=== PATIENT | female | born 1940 | race Caucasian/White ===

== ENCOUNTER 2017-07-12 20:05 | Emergency (ER) | payer MEDICARE, OTHER ==
[~2017-07-12] VITALS: Ht 162.6 cm; Wt 115.2 kg
== END 2017-07-12 21:00 | disposition home or self-care (01) ==
LOC: ER 20:05
DX: L03.313 Cellulitis of chest wall (principal); L02.213 Cutaneous abscess of chest wall; Z95.1 Presence of aortocoronary bypass graft
CPT/HCPCS: 99282

== ENCOUNTER 2018-03-21 20:03 | Inpatient (IN) | payer MEDICARE ==
[~2018-03-21] VITALS: Ht 162.6 cm; Wt 125.7 kg
--- OUTSIDE RECORDS SUMMARY | 2018-03-21 20:06 | XMS REPORT | Clinical Summary ---
Author Author FILIBERTO C3DNA Organization [facility] [employer] [facility] Address Unknown Phone Unavailable Care Team Providers Care Adoption Social Worker Name Role Phone tOf Levine MD PCP Allergies No Known Allergies Medications End Date Status Medication Sig Dispensed Refills Start Date Active aspirin 81 MG chewable Take 81 mg by 0 tablet mouth daily. Active atorvastatin (LIPITOR) 80 Take 80 mg by 0 MG tablet mouth daily. Active budesonide-formoterol Inhale 2 0 (SYMBICORT) 160-4.5 puffs by mcg/actuation inhaler mouth via inhaler 2 (two) times daily. Active gabapentin (NEURONTIN) Take 300 mg 0 300 MG capsule by mouth 3 (three) times daily . Active ranitidine (ZANTAC) 150 Take 150 mg 0 MG capsule by mouth 2 (two) times daily. Active bisoprolol (ZEBETA) 5 MG Take 5 mg by 0 tablet mouth 2 (two) times daily. Active lactulose (CHRONULAC) 10 Take 20 g by 0 gram/15 mL (15 mL) mouth 2 (two) solution times daily. Active cholecalciferol, vitamin Take 1 tablet 0 D3, 5,000 unit Tab by mouth daily. Active cyanocobalamin (VITAMIN Take 1 tablet 0 B-12) 1000 MCG tablet by mouth daily. Active C,E,zinc,copper Take 1 tablet 0 11/mqmlt1o/lut (OCUVITE by mouth ADULT 50 PLUS ORAL) daily. Active latanoprost (XALATAN) Place 1 drop 0 11/02/201 0.005 % ophthalmic into both 8 solution eyes daily. Active loratadine (CLARITIN) 10 Take 1 tablet 0 12/11/201 mg tablet by mouth 6 daily as needed for Allergies. Active nitroglycerin (NITROSTAT) Take 1 tablet 0 0.4 MG SL tablet by mouth as 8 needed for Chest pain Dissolve one to two tablets under the tongue as needed up to 3 times. If not relieved, please call 911. 02/18/2018 Discontinued acetaminophen-codeine Take 1 tablet 0 (TYLENOL #3) 300-30 mg by mouth per tablet every 4 (four) hours as needed for Pain. 02/18/2018 Discontinued clopidogrel (PLAVIX) 75 Take 75 mg by 0 mg tablet mouth daily. 02/18/2018 Discontinued losartan-hydroCHLOROthiaz Take 1 tablet 0 dari (HYZAAR) 50-12.5 mg by mouth per tablet daily. 02/18/2018 Discontinued spironolactone Take 25 mg by 0 (ALDACTONE) 25 MG tablet mouth daily. 02/18/2018 Discontinued ondansetron (ZOFRAN ODT) Take 4 mg by 0 4 MG disintegrating mouth every 8 8 tablet (eight) hours as needed for Nausea. 02/21/2018 levoFLOXacin (LEVAQUIN) Take 1 tablet 2 tablet 0 250 MG tablet (250 mg 8 total) by mouth daily for 2 days. Active Problems Problem Noted Date Hepatic encephalopathy 02/17/2018 Visual hallucinations 02/17/2018 Acute UTI 02/17/2018 Acute vomiting 02/17/2018 Cirrhosis 02/17/2018 Encounters Care Team Description Date Type Specialty Dann Ramos MD Liver lesion; Abnormal ultrasound 03/08/2018 Hospital Radiology Encounter Dann Ramos MD Liver lesion (Primary Dx); Abnormal ultrasound 03/01/2018 Outside Orders Radiology 02/17/2018 Travel Na Apodaca MD Udayamurthy, Anita, MD Acute vomiting (Primary Dx); Cirrhosis of liver without ascites, unspecified hepatic cirrhosis type (HCC); Hepatic encephalopathy (HCC); Visual hallucinations; Intractable cyclical vomiting with nausea; Tongue wound, initial encounter; Serotonin syndrome; Acute urinary tract infection; Acute UTI 02/16/2018 Hospital General Internal Medicine - Encounter 02/18/2018 02/16/2018 Orders Only General Internal Medicine 02/16/2018 Travel after 03/20/2017 Family History Medical History Relation Name Comments Aneurysm Father Cancer Mother Relation Name Status Comments Father Mother Social History Date Tobacco Use Types Packs/Day Years Used Never Smoker Smokeless Tobacco: Never Used Alcohol Use Drinks/Week oz/Week Comments No Alcohol Habits Answer Date Recorded How often do you have a drink containing alcohol? Never 02/17/2018 How many drinks containing alcohol do you have on Not asked a typical day when you are drinking? How often do you have six or more drinks on one Not asked occasion? Sex Assigned at Date Recorded Not on file Industry Job Start Date Occupation Not on file Not on file Not on file Travel End Travel History Travel Start No recent travel history available. Last Filed Vital Signs Time Taken Vital Sign Reading 02/18/2018 10:41 AM [employer] Blood Pressure 134/59 02/18/2018 10:41 AM [employer] Pulse 77 02/18/2018 10:41 AM [employer] Temperature 36.6 C (97.8 F) 02/18/2018 10:41 AM [employer] Respiratory Rate 18 02/18/2018 10:41 AM [employer] Oxygen Saturation 94% 02/17/2018 10:11 PM [employer] Inhaled Oxygen 21% Concentration 02/16/2018 11:14 PM [employer] Weight 113.4 kg (250 lb) 02/16/2018 11:14 PM [employer] Height 162.6 cm (5' 4") 02/16/2018 11:14 PM [employer] Body Mass Index 42.91 Plan of Treatment Not on file Procedures Comments Procedure Name Priority Date/Time Associated Diagnosis MR ABDOMEN WITH/WITHOUT Routine 03/08/2018 Liver lesion IV CONTRAST 3:20 PM [employer] Abnormal ultrasound POCT-CREATININE Routine 03/08/2018 2:29 PM [employer] AMMONIA Routine 02/18/2018 5:13 AM [employer] HEPATIC FUNCTION PANEL Routine 02/18/2018 5:13 AM [employer] BASIC METABOLIC PANEL (7) Routine 02/18/2018 5:13 AM [employer] CBC W/PLT COUNT & AUTO Routine 02/18/2018 DIFFERENTIAL 5:12 AM [employer] CBC W/PLT COUNT & AUTO Routine 02/18/2018 DIFFERENTIAL 5:12 AM [employer] POCT-LACTIC ACID, VENOUS Routine 02/17/2018 7:16 AM [employer] CBC W/PLT COUNT & AUTO Routine 02/17/2018 DIFFERENTIAL 5:21 AM [employer] CBC W/PLT COUNT & AUTO Routine 02/17/2018 DIFFERENTIAL 5:21 AM [employer] HEPATIC FUNCTION PANEL Routine 02/17/2018 5:21 AM [employer] BASIC METABOLIC PANEL (7) Routine 02/17/2018 5:21 AM [employer] US ABDOMEN COMPLETE STAT 02/17/2018 4:10 AM [employer] XR CHEST 1 VIEW STAT 02/17/2018 PORTABLE/BEDSIDE 3:27 AM [employer] CT BRAIN WITHOUT IV STAT 02/17/2018 CONTRAST 2:32 AM [employer] APTT STAT 02/17/2018 12:42 AM [employer] PROTHROMBIN TIME/INR STAT 02/17/2018 12:42 AM [employer] AMMONIA STAT 02/17/2018 12:35 AM [employer] CBC W/PLT COUNT & AUTO STAT 02/17/2018 DIFFERENTIAL 12:06 AM [employer] BLOOD GAS, VENOUS STAT 02/17/2018 12:06 AM [employer] LACTIC ACID, VENOUS, STAT 02/17/2018 WHOLE BLOOD 12:06 AM [employer] PHOSPHORUS STAT 02/17/2018 12:06 AM [employer] MAGNESIUM STAT 02/17/2018 12:06 AM [employer] HEPATIC FUNCTION PANEL STAT 02/17/2018 12:06 AM [employer] BASIC METABOLIC PANEL (7) STAT 02/17/2018 12:06 AM [employer] CBC W/PLT COUNT & AUTO STAT 02/17/2018 DIFFERENTIAL 12:06 AM [employer] URINALYSIS W/ REFLEX STAT 02/17/2018 URINE CULTURE 12:01 AM [employer] URINE CULTURE STAT 02/17/2018 12:01 AM [employer] ED ECG INTERPRETATION Routine 02/16/2018 11:30 PM [employer] ECG 12-LEAD Routine 02/16/2018 11:21 PM [employer] Procedure Note - Interface, External Ris In - 02/16/2018 11:35 PM [employer] Ventricula r Rate 52 BPM Atrial Rate 52 BPM P-R Interval 212 ms QRS Duration 90 ms Q-T Interval 506 ms QTC Calculatio n(Bazett) 470 ms P Entriken 72 degrees R Entriken 56 degrees T Entriken 1 degrees Sinus bradycardi a with 1st degree A-V block Nonspecifi c ST and T wave abnormalit y Prolonged QT Abnormal ECG No previous ECGs available ECG 12-LEAD STAT 02/16/2018 11:21 PM [employer] after 03/20/2017 Results * MR abdomen without & with IV contrast (03/08/2018 3:20 PM [employer]) Narrative Performed At FINAL REPORT [facility] MRI of the abdomen dated March 08, 2018 Comment: Multiplanar T1 and T2-weighted images of the abdomen, postcontrast axial and coronal T1-weighted images of the abdomen were obtained. Liver is cirrhotic liver is cirrhotic in appearance with irregular margins. No suspicious mass or abnormal enhancement is seen in the liver. A 1 cm cyst is seen in the segment to 3 of the liver. Spleen is normal in size. The splenic, spleen mesenteric, portal, and hepatic veins are patent. Main portal vein measures approximately 9 mm in diameter. No portal vein thrombosis is seen. Gallbladder is not visualized. There is mild biliary dilatation. Common bile duct measures 9 mm in diameter. Pancreas and adrenals are unremarkable. Both kidneys are normal in size and functioning. A 2.2 cm cyst is seen in the midpole right kidney. There is trace amount of ascites is seen in the abdomen. IMPRESSION: 1. Cirrhosis. 2. No suspicious hepatic mass. 3. Liver and right renal cysts. 4. Trace ascites. Signed: Tayo Bentley MD Report Verified Date/Time:03/08/2018 18:05:21 Reading Location: [facility] B1 C013Y CT Body Reading Room Procedure Note Interface, External Ris In - 03/08/2018 6:07 PM [employer] FINAL REPORT MRI of the abdomen dated March 08, 2018 Comment: Multiplanar T1 and T2-weighted images of the abdomen, postcontrast axial and coronal T1-weighted images of the abdomen were obtained. Liver is cirrhotic liver is cirrhotic in appearance with irregular margins. No suspicious mass or abnormal enhancement is seen in the liver. A 1 cm cyst is seen in the segment to 3 of the liver. Spleen is normal in size. The splenic, spleen mesenteric, portal, and hepatic veins are patent. Main portal vein measures approximately 9 mm in diameter. No portal vein thrombosis is seen. Gallbladder is not visualized. There is mild biliary dilatation. Common bile duct measures 9 mm in diameter. Pancreas and adrenals are unremarkable. Both kidneys are normal in size and functioning. A 2.2 cm cyst is seen in the midpole right kidney. There is trace amount of ascites is seen in the abdomen. IMPRESSION: 1. Cirrhosis. 2. No suspicious hepatic mass. 3. Liver and right renal cysts. 4. Trace ascites. Signed: Tayo Bentley MD Report Verified Date/Time: 03/08/2018 18:05:21 Reading Location: [facility] C013Y CT Body Reading Room Performing Organization Address City/[facility]/Zipcode Phone Number GE RIS * POC-Creatinine (03/08/2018 2:29 PM [employer]) POC-Creatinine 0.9Comment: TESTED AT [facility]-KG 0.6 - 1.3 mg/dL [address] [place] [address] POC-EGFR 61 mL/min/1.73M2 [facility] Specimen Blood Narrative Performed At Performing Organization Address City/State/Zipcode Phone Number [address] [address] [facility] * Ammonia (02/18/2018 5:13 AM [employer]) Only the most recent of 2 results within the time period is included. Ammonia 64 18 - 72 mol/L [facility] Specimen Blood Performing Organization Address City/[facility]/Zipcode Phone Number [facility] [address] [place] [address] [facility] * Hepatic function panel (02/18/2018 5:13 AM [employer]) Only the most recent of 3 results within the time period is included. Protein, Total 6.2 6.0 - 8.3 gm/dL [facility] Albumin 2.8 (L) 3.5 - 5.0 g/dL [facility] Total Bilirubin 3.3 (H) 0.2 - 1.2 mg/dL [facility] Bilirubin, Direct 1.0 (H) 0.1 - 0.5 mg/dL [facility] Alkaline Phosphatase 139 40 - 150 U/L [facility] AST 84 (H) 5 - 34 U/L [facility] ALT 50 6 - 55 U/L [facility] Specimen Blood Narrative Performed At Specimen moderately icteric [facility] Performing Organization Address City/State/Zipcode Phone Number [facility] [address] [place] [address] [facility] * Basic metabolic panel (02/18/2018 5:13 AM [employer]) Only the most recent of 3 results within the time period is included. Sodium 137 136 - 145 meq/L [facility] Potassium 3.8 3.5 - 5.1 meq/L [facility] Chloride 108 (H) 98 - 107 meq/L [facility] CO2 20 (L) 22 - 29 meq/L [facility] BUN 20 7 - 21 mg/dL [facility] Creatinine 1.31 (H) 0.57 - 1.25 mg/dL [facility] Glucose 101 70 - 105 mg/dL [facility] Calcium 8.5 8.4 - 10.2 mg/dL [facility] EGFR 39Comment: ESTIMATED GFR IS mL/min/1.[address] [facility] NOT ACCURATE CREATININE [facility] CLEARANCE IN PREDICTING GLOMERULAR FILTRATION RATE. ESTIMATED GFR IS NOT APPLICABLE FOR DIALYSIS PATIENTS. Specimen Blood Narrative Performed At Specimen moderately icteric [facility] Performing Organization Address City/State/Zipcode Phone Number [facility] [address] [place] [address] [facility] * CBC with platelet count + automated diff (02/18/2018 5:12 AM [employer]) Only the most recent of 3 results within the time period is included. WBC 5.9 3.5 - 10.5 K/L [facility] RBC 3.62 (L) 3.93 - 5.22 M/L [facility] Hemoglobin 11.7 11.2 - 15.7 GM/DL [facility] Hematocrit 35.7 34.1 - 44.9 % [facility] MCV 98.6 (H) 79.4 - 94.8 fL [facility] MCH 32.3 (H) 25.6 - 32.2 pg [facility] MCHC 32.8 32.2 - 35.5 GM/DL [facility] RDW 15.2 (H) 11.7 - 14.4 % [facility] Platelets 87 (L) 150 - 450 K/CU MM [facility] MPV 11.4 9.4 - 12.3 fL [facility] nRBC 0 0 - 0 /100 WBC [facility] % Neutros 63 % [facility] % Lymphs 19 % [facility] % Monos 16 % [facility] % Eos 2 % [facility] % Baso 1 % [facility] # Neutros 3.69 1.56 - 6.13 K/L [facility] # Lymphs 1.09 (L) 1.18 - 3.74 K/L [facility] # Monos 0.96 (H) 0.24 - 0.36 K/L [facility] # Eos 0.09 0.04 - 0.36 K/L [facility] # Baso 0.04 0.01 - 0.08 K/L [facility] Immature 0 0 - 1 % [facility] Granulocytes-[facility] Specimen Blood Performing Organization Address City/[facility] Cent[facility]ode Phone Number [address] [address] [facility] * POC-Lactic Acid, Venous (02/17/2018 7:16 AM [employer]) POC-Lactic Acid, Venous 2.8 (H)Comment: TESTED AT 0.9 - 1.7 mmol/L [address] [address] Specimen Blood Performing Organization Address City/[facility] Phone Number [place] [phone] [place] [address] * US abdomen complete (02/17/2018 4:10 AM [employer]) Narrative Performed At FINAL REPORT [facility] Ultrasound of the Abdomen, complete Clinical History:Emesis and hepatic encephalopathy. Discussion: Sonographic evaluation of the abdomen was performed. There is no prior study for comparison. Liver: 16.4 cm in length at the right midclavicular line.Coarse echotexture with nodular contour keeping with cirrhosis.1.0 x 0.9 x 0.8 cm simple cyst in the left hepatic lobe.Main portal vein is patent measuring 1.0 cm in diameter and demonstrates hepatopetal flow. Biliary tree:Common duct 10 mm.No intrahepatic biliary ductal dilatation. Gallbladder: Status post cholecystectomy. Pancreas: Partially obscured by bowel gas but the visualized portions are unremarkable. Ascites:None seen Spleen:Normal size measuring 12 x 5 x 4.9 cm. Kidneys: Right kidney 10.7 x 4.5 x 4.6 cm with cortical thickness of 1.2 cm.Left kidney 11.5 x 5.8 x 5.2 cm with cortical thickness of 1.6 cm.Normal cortical echogenicity. 2.3 x 1.8 x 2.3 cm simple right lower pole cyst. No shadowing calculus or hydronephrosis. IVC/Aorta:Segments partially seen.Unremarkable. Impression: Status post cholecystectomy. No biliary ductal dilatation. Cirrhotic morphology of the liver. Small left hepatic cyst. Patent main portal vein. Signed: Karis Ross MD Report Verified Date/Time:02/17/2018 04:55:29 Reading Location: [address] Body Reading Room Procedure Note Interface, External Ris In - 02/17/2018 4:57 AM [employer] FINAL REPORT Ultrasound of the Abdomen, complete Clinical History: Emesis and hepatic encephalopathy. Discussion: Sonographic evaluation of the abdomen was performed. There is no prior study for comparison. Liver: 16.4 cm in length at the right midclavicular line. Coarse echotexture with nodular contour keeping with cirrhosis. 1.0 x 0.9 x 0.8 cm simple cyst in the left hepatic lobe. Main portal vein is patent measuring 1.0 cm in diameter and demonstrates hepatopetal flow. Biliary tree: Common duct 10 mm. No intrahepatic biliary ductal dilatation. Gallbladder: Status post cholecystectomy. Pancreas: Partially obscured by bowel gas but the visualized portions are unremarkable. Ascites: None seen Spleen: Normal size measuring 12 x 5 x 4.9 cm. Kidneys: Right kidney 10.7 x 4.5 x 4.6 cm with cortical thickness of 1.2 cm. Left kidney 11.5 x 5.8 x 5.2 cm with cortical thickness of 1.6 cm. Normal cortical echogenicity. 2.3 x 1.8 x 2.3 cm simple right lower pole cyst. No shadowing calculus or hydronephrosis. IVC/Aorta: Segments partially seen. Unremarkable. Impression: Status post cholecystectomy. No biliary ductal dilatation. Cirrhotic morphology of the liver. Small left hepatic cyst. Patent main portal vein. Signed: Karis Ross MD Report Verified Date/Time: 02/17/2018 04:55:29 Reading Location: [facility] C013Y CT Body Reading Room Performing Organization Address [facility] Phone Number GE [facility] * XR chest 1 view portable / bedside (02/17/2018 3:27 AM [employer]) Narrative Performed At FINAL REPORT [facility] Chest one view. Clinical history: Emesis and hepatic encephalopathy. Comparison: None. Technique: A single frontal view of the chest was obtained. Findings: The patient is status post median sternotomy. The heart is normal in size. The aorta is tortuous. There is no focal pulmonary consolidation, pleural effusion or pneumothorax. There is no pulmonary edema. There is lower cervical spine fusion hardware. Impression: No focal pulmonary consolidation. Signed: Karis Ross MD Report Verified Date/Time:02/17/2018 03:28:02 Reading Location: [facility] C013Y CT Body Reading Room Procedure Note Interface, External Ris In - 02/17/2018 3:30 AM [employer] FINAL REPORT Chest one view. Clinical history: Emesis and hepatic encephalopathy. Comparison: None. Technique: A single frontal view of the chest was obtained. Findings: The patient is status post median sternotomy. The heart is normal in size. The aorta is tortuous. There is no focal pulmonary consolidation, pleural effusion or pneumothorax. There is no pulmonary edema. There is lower cervical spine fusion hardware. Impression: No focal pulmonary consolidation. Signed: Karis Ross MD Report Verified Date/Time: 02/17/2018 03:28:02 Reading Location: [facility] C013Y CT Body Reading Room Performing Organization Address [facility] Cent[facility]ode Phone Number [facility] * CT brain without IV contrast (02/17/2018 2:32 AM [employer]) Narrative Performed At FINAL REPORT [facility] CLINICAL HISTORY: Confusion, loss of consciousness, emesis, possible seizure COMPARISON: None Multiple axial images of the brain were performed without IV contrast. This exam was performed according to our departmental dose-optimization program, which includes automated exposure control, adjustment of the mA and/or kV according to patient size and/or use of the iterative reconstruction technique. Intracranial hemorrhage: None. Brain parenchyma:Diffuse parenchymal volume loss. Scattered subcortical and periventricular non-specific white matter hypodensities suggestive of microangiopathy. Ventricles, sulci and basal cisterns: Normal for age. Extra-axial spaces: Normal. Midline shift: None. Visualized vasculature: Atherosclerotic calcifications. Cranium: No significant findings. Skullbase: No significant findings. Paranasal sinuses: No significant findings. IMPRESSION: No definite acute intracranial abnormality. There is no mass lesion, intracranial hemorrhage or CT evidence of acute stroke. Microvascular and involutional changes. Please note that CT is insensitive in the detection of acute ischemia. Signed: Aneudy Chin MD Report Verified Date/Time:02/17/2018 02:34:19 Reading Location: [address] Reading Room Procedure Note Interface, External Ris In - 02/17/2018 2:36 AM [employer] FINAL REPORT CLINICAL HISTORY: Confusion, loss of consciousness, emesis, possible seizure COMPARISON: None Multiple axial images of the brain were performed without IV contrast. This exam was performed according to our departmental dose-optimization program, which includes automated exposure control, adjustment of the mA and/or kV according to patient size and/or use of the iterative reconstruction technique. Intracranial hemorrhage: None. Brain parenchyma: Diffuse parenchymal volume loss. Scattered subcortical and periventricular non-specific white matter hypodensities suggestive of microangiopathy. Ventricles, sulci and basal cisterns: Normal for age. Extra-axial spaces: Normal. Midline shift: None. Visualized vasculature: Atherosclerotic calcifications. Cranium: No significant findings. Skullbase: No significant findings. Paranasal sinuses: No significant findings. IMPRESSION: No definite acute intracranial abnormality. There is no mass lesion, intracranial hemorrhage or CT evidence of acute stroke. Microvascular and involutional changes. Please note that CT is insensitive in the detection of acute ischemia. Signed: Aneudy Chin MD Report Verified Date/Time: 02/17/2018 02:34:19 Reading Location: [address] Reading Room Performing Organization Address City/State/Zipcode Phone Number GE [facility] * PTT (aPTT) (02/17/2018 12:42 AM [employer]) PTT 38.9 (H) 22.5 - 36.0 seconds [facility] Specimen Blood Performing Organization Address City/[facility] Cent[facility]ode Phone Number [facility] [address] [place] [phone] * PT/INR (02/17/2018 12:42 AM [employer]) Protime 17.0 (H) 11.7 - 14.7 seconds [facility] INR 1.4 <=5.9 [facility] Specimen Blood Narrative Performed At RECOMMENDED COUMADIN/WARFARIN INR THERAPY RANGES [facility] STANDARD DOSE: 2.0 - 3.0 Includes: PROPHYLAXIS for venous thrombosis, [facility] systemic embolization; TREATMENT for venous thrombosis and/or pulmonary embolus. HIGH RISK: Target INR is 2.5-3.5 for patients with mechanical heart valves. Performing Organization Address [facility]conc Phone Number [address] * Lactic acid, venous, whole blood (02/17/2018 12:06 AM [employer]) Lactate, Venous 2.7 (H)Comment: Specimen 0.5 - 2.2 mmol/L [facility] slightly hemolyzed [facility] Specimen Blood Narrative Performed At Specimen slightly icteric [facility] Performing Organization Address [facility] Centercode Phone Number [facility] [address] [place] [address] [phone] [place] [address] * Phosphorus (02/17/2018 12:06 AM [facility] [employer]) Phosphorus 2.4 2.3 - 4.7 mg/dL [facility] Specimen Blood Performing Organization Address City/[facility]/Zipcode Phone Number [facility] [address] [place] [address] [phone] [facility] * Magnesium (02/17/2018 12:06 AM [employer]) Magnesium 2.3 1.6 - 2.6 mg/dL [facility] Specimen Blood Performing Organization Address City/State/Zipcode Phone Number [address] [address] [facility] * Blood gas, venous (02/17/2018 12:06 AM [facility]) pH, Miguel 7.40 7.32 - 7.42 [facility] pCO2, Miguel 44 41 - 51 mmHg [facility] pO2, Miguel 94 (H) 25 - 40 mmHg [facility] O2 Sat, Miguel 97.2 (H) 40.0 - 70.0 % [facility] HCO3, Miguel 27 21 - 29 mmol/L [facility] Base Excess, Miguel 1.6 -2.0 - 3.0 mmol/L [facility] Patient Temperature 37.0 C [facility] FIO2 21.0 % [facility] Specimen Blood Performing Organization Address City/State/Zipcode Phone Number [address] [address] [facility] * Urinalysis w/Microscopic + Reflex to Culture (02/17/2018 12:01 AM [facility]) Color, UA Yellow [facility] Clarity, UA Hazy [facility] Specific Baltic, UA 1.015 1.001 - 1.035 [facility] pH, UA 6.5 5.0 - 8.0 [facility] Protein, UA 70 mg/dL (A) Negative [facility] Glucose, UA Negative Negative [facility] Ketones, UA Negative Negative [facility] Bilirubin, UA Negative Negative [facility] Blood, UA Moderate (A) Negative [facility] Nitrite, UA Negative Negative [facility] Leukocytes, UA Large (A) Negative [facility] Urobilinogen, UA 12.0 (H) 0.2 - 1.0 mg/dL [facility] RBC, UA 7 /HPF [facility] WBC, UA 149 /HPF [facility] Bacteria, UA Many [facility] Squam Epithel, UA 8 /HPF [facility] Hyaline Casts, UA 10 /LPF [facility] Granular Casts, UA 20 /LPF [facility] Specimen Source [facility] Specimen Urine - Urine, Clean Catch Performing Organization Address City/State/Zipcode Phone Number [facility] [address] [place] [address] [facility]ENTER * Urine culture (02/17/2018 12:01 AM [employer]) Result RAOULTELLA ORNITHINOLYTICA (A) [facility] Result ENTEROBACTER CLOACAE COMPLEX [facility] () [facility] Specimen Urine - Urine, Clean Catch Antibiotic Method Susceptibility Organism Amikacin <=2: Susceptible Raoultella ornithinolytica Ampicillin + Sulbactam 8: Susceptible Raoultella ornithinolytica Aztreonam <=1: Susceptible Raoultella ornithinolytica Cefepime <=1: Susceptible Raoultella ornithinolytica Cefoxitin <=4: Susceptible Raoultella ornithinolytica Ceftazidime <=1: Susceptible Raoultella ornithinolytica Ceftriaxone <=1: Susceptible Raoultella ornithinolytica Ertapenem <=0.5: Susceptible Raoultella ornithinolytica Gentamicin <=1: Susceptible Raoultella ornithinolytica Levofloxacin <=0.12: Susceptible Raoultella ornithinolytica Meropenem <=0.25: Susceptible Raoultella ornithinolytica Nitrofurantoin <=16: Susceptible Raoultella ornithinolytica Piperacillin + Tazobactam <=4: Susceptible Raoultella ornithinolytica Tetracycline <=1: Susceptible Raoultella ornithinolytica Tobramycin <=1: Susceptible Raoultella ornithinolytica Trimethoprim + Sulfamethoxazole <=20: Susceptible Raoultella ornithinolytica Amikacin <=8: Susceptible Enterobacter cloacae complex Ampicillin >16: Resistant Enterobacter cloacae complex Ampicillin + Sulbactam 16: Resistant Enterobacter cloacae complex Aztreonam <=1: Susceptible Enterobacter cloacae complex Cefepime <=4: Dose Dependent Susceptible Enterobacter cloacae complex Ceftazidime <=1: Susceptible Enterobacter cloacae complex Ciprofloxacin <=0.5: Susceptible Enterobacter cloacae complex Gentamicin <=2: Susceptible Enterobacter cloacae complex Levofloxacin <=1: Susceptible Enterobacter cloacae complex Meropenem <=0.5: Susceptible Enterobacter cloacae complex Nitrofurantoin >8: Susceptible Enterobacter cloacae complex Piperacillin + Tazobactam <=8: Susceptible Enterobacter cloacae complex Tetracycline >8: Resistant Enterobacter cloacae complex Tobramycin <=2: Susceptible Enterobacter cloacae complex Trimethoprim + Sulfamethoxazole >80: Resistant Enterobacter cloacae complex Comment: Higher doses of Cefepime such as 1g every 8 hours are recommended with an interpretation of Dose Dependent Susceptible Performing Organization Address City/State/Zipcode Phone Number [facility] [address] [place] [address] [facility] * ECG/EKG Interpretation (02/16/2018 11:30 PM [employer]) Narrative Performed At Na Apodaca MD 02/19/20188:51 AM ECG/EKG Interpretation Date/Time: 02/16/2018 11:21 PM Performed by: Na Apodaca MD Authorized by: Na Apodaca MD The ECG was interpreted by ED physician. This ECG was not compared with previous ECG(s).There was no previous ECG available for comparison. The ECG is interpreted as sinus bradycardia. Rate is bradycardic. Heart rate is 52 BPM. Abnormal conduction noted: pr 0.[address] segments normal. T waves abnormal. T-wave inversion in lead(s) III and V3. T-wave flattening in lead(s) V4, V5 and V6. Entriken is normal. Other findings include: QTc 0.470and prolonged QTc interval. Clinical Impression: abnormal ECGECG reviewed and does not meet STEMI criteria. Patient tolerance: Patient tolerated the procedure well with no immediate complications * ECG 12 lead (02/16/2018 11:21 PM [employer]) Narrative Performed At Ventricular Rate 52 BPM GE MUSE Atrial Rate 52 BPM P-R Interval 212 ms QRS Duration 90 ms Q-T Interval 506 ms QTC Calculation(Bazett) 470 ms P Entriken 72 degrees R Entriken 56 degrees T Entriken 1 degrees Sinus bradycardia with 1st degree A-V block Nonspecific ST and T wave abnormality Prolonged QT Abnormal ECG No previous ECGs available Confirmed by Сергей WYATT MICHAEL ([id number]) on 02/17/2018 7:21:49 AM Procedure Note Interface, External Ris In - 02/17/2018 7:21 AM [employer] Ventricular Rate 52 BPM Atrial Rate 52 BPM P-R Interval 212 ms QRS Duration 90 ms Q-T Interval 506 ms QTC Calculation(Bazett) 470 ms P Entriken 72 degrees R Entriken 56 degrees T Entriken 1 degrees Sinus bradycardia with 1st degree A-V block Nonspecific ST and T wave abnormality Prolonged QT Abnormal ECG No previous ECGs available Confirmed by Сергей WYATT MICHAEL ([id number]) on 02/17/2018 7:21:49 AM Performing Organization Address City/State/Zipcode Phone Number [facility] after 03/20/2017 Insurance Payer Benefit Subscriber ID Type Phone Address Plan / Group [facility] xxxxxxxxxxx MEDICARE ADV Advance Directives For more information, please contact: [facility] [address] [place] [address] Date Inactivated Comments Code Status Date Activated Full Code 02/17/2018 3:05 AM This code status was determined by: Patient
--- OUTSIDE RECORDS SUMMARY | 2018-03-21 20:07 | XMS REPORT ---
Author Author [facility] Address Unknown Phone Unavailable Care Team Providers Care Button Breaker Name Role Phone ERICKSON MA Unavailable Unavailable KEVANNISHAEDUIN Unavailable Unavailable Problems This patient has no known problems. Allergies, Adverse Reactions, Alerts This patient has no known allergies or adverse reactions. Medications This patient has no known medications. Results Test Description Test Time Test Comments Text Results Atomic Results Result Comments MR, ABDOMEN, WITH 2018-03-08 18:05:00 FINAL REPORT MRI of the abdomen dated [...] of ascites is seen in the abdomen. IMPRESSION:1. Cirrhosis.2. No suspicious hepatic mass.3. Liver and right renal cysts.4. Trace ascites. Signed: Tayo Bentley MDReport Verified Date/Time: 03/08/2018 18:05:21 Reading Location: [facility] C013Y CT Body Reading Room -CREATININE 2018-03-08 14:33:00 POC-CREATININE (KELSEAAKER) (test stuh=0500) 0.9 mg/dL 0.6-1.3 TESTED AT [address] [place] [address] POC-EGFR (BEAKER) (test ubgq=6335) 61 mL/min/1.73M2 BASIC METABOLIC [id number] 08:17:00* Test Item Value Reference Range Comments SODIUM (BEAKER) (test wenb=226) 137 meq/L 136-145 POTASSIUM (BEAKER) (test qfht=409) 3.8 meq/L 3.5-5.1 CHLORIDE (BEAKER) (test xwqv=127) 108 meq/L 98-107 CO2 (BEAKER) (test rzbk=749) 20 meq/L 22-29 BLOOD UREA NITROGEN (BEAKER) (test tuef=031) 20 mg/dL 7-21 CREATININE (BEAKER) (test bwzh=792) 1.31 mg/dL 0.57-1.25 GLUCOSE RANDOM (BEAKER) (test ucbr=941) 101 mg/dL 70-105 CALCIUM (BEAKER) (test kwyr=071) 8.5 mg/dL 8.4-10.2 EGFR (BEAKER) (test equm=3292) 39 mL/min/1.73 sq m ESTIMATED GFR IS NOT ACCURATE CREATININE CLEARANCE IN PREDICTING GLOMERULAR FILTRATION RATE. ESTIMATED GFR IS NOT APPLICABLE FOR DIALYSIS PATIENTS. Specimen moderately ictericHEPATIC FUNCTION [id number] 08:17:00* Test Item Value Reference Range Comments TOTAL PROTEIN (BEAKER) (test gptr=079) 6.2 gm/dL 6.0-8.3 ALBUMIN (BEAKER) (test ukfu=0333) 2.8 g/dL 3.5-5.0 BILIRUBIN TOTAL (BEAKER) (test opcj=604) 3.3 mg/dL 0.2-1.2 BILIRUBIN DIRECT (BEAKER) (test ryjw=831) 1.0 mg/dL 0.1-0.5 ALKALINE PHOSPHATASE (BEAKER) (test pyjv=963) 139 U/L 40-150 AST (SGOT) (BEAKER) (test vadj=209) 84 U/L 5-34 ALT (SGPT) (BEAKER) (test sxkx=795) 50 U/L 6-55 Specimen moderately [id number] 07:50:00* Test Item Value Reference Range Comments AMMONIA (BEAKER) (test auzs=712) 64 mol/L 18-72 CBC W/PLT COUNT & AUTO [id number] 06:14:00* Test Item Value Reference Range Comments WHITE BLOOD CELL COUNT (BEAKER) (test cmqr=855) 5.9 K/ L 3.5-10.5 RED BLOOD CELL COUNT (BEAKER) (test vlvx=995) 3.62 M/ L 3.93-5.22 HEMOGLOBIN (BEAKER) (test wrkk=270) 11.7 GM/DL 11.2-15.7 HEMATOCRIT (BEAKER) (test ndsk=649) 35.7 % 34.1-44.9 MEAN CORPUSCULAR VOLUME (BEAKER) (test awij=972) 98.6 fL 79.4-94.8 MEAN CORPUSCULAR HEMOGLOBIN (BEAKER) (test nqgb=609) 32.3 pg 25.6-32.2 MEAN CORPUSCULAR HEMOGLOBIN CONC (BEAKER) (test wfsr=038) 32.8 GM/DL 32.2-35.5 RED CELL DISTRIBUTION WIDTH (BEAKER) (test mcsz=876) 15.2 % 11.7-14.4 PLATELET COUNT (BEAKER) (test ozrw=180) 87 K/CU MM 150-450 MEAN PLATELET VOLUME (BEAKER) (test miss=834) 11.4 fL 9.4-12.3 NUCLEATED RED BLOOD CELLS (BEAKER) (test mrpg=666) 0 /100 WBC 0-0 NEUTROPHILS RELATIVE PERCENT (BEAKER) (test uame=041) 63 % LYMPHOCYTES RELATIVE PERCENT (BEAKER) (test fulh=599) 19 % MONOCYTES RELATIVE PERCENT (BEAKER) (test kfeg=623) 16 % EOSINOPHILS RELATIVE PERCENT (BEAKER) (test zzhw=835) 2 % BASOPHILS RELATIVE PERCENT (BEAKER) (test vbqs=810) 1 % NEUTROPHILS ABSOLUTE COUNT (BEAKER) (test wjsv=115) 3.69 K/ L 1.56-6.13 LYMPHOCYTES ABSOLUTE COUNT (BEAKER) (test fbby=978) 1.09 K/ L 1.18-3.74 MONOCYTES ABSOLUTE COUNT (BEAKER) (test tjmb=767) 0.96 K/ L 0.24-0.36 EOSINOPHILS ABSOLUTE COUNT (BEAKER) (test kpkf=756) 0.09 K/ L 0.04-0.36 BASOPHILS ABSOLUTE COUNT (BEAKER) (test xeyy=216) 0.04 K/ L 0.01-0.08 IMMATURE GRANULOCYTES-RELATIVE PERCENT (BEAKER) (test gkex=9772) 0 % 0-1 POCT-LACTIC ACID, [id number] 07:21:00* Test Item Value Reference Range Comments POC-LACTIC ACID, VENOUS (BEAKER) (test sblh=1207) 2.8 mmol/L 0.9-1.7 TESTED AT [facility] [address] [facility] [address] BASIC METABOLIC [id number] 06:08:00* Test Item Value Reference Range Comments SODIUM (BEAKER) (test jcmn=320) 133 meq/L 136-145 POTASSIUM (BEAKER) (test pjcc=700) 4.4 meq/L 3.5-5.1 Specimen slightly hemolyzed CHLORIDE (BEAKER) (test ydfq=466) 102 meq/L 98-107 CO2 (BEAKER) (test jfdg=326) 22 meq/L 22-29 BLOOD UREA NITROGEN (BEAKER) (test kbkz=302) 22 mg/dL 7-21 CREATININE (BEAKER) (test tygh=583) 1.44 mg/dL 0.57-1.25 Specimen slightly hemolyzed GLUCOSE RANDOM (BEAKER) (test arpb=881) 114 mg/dL 70-105 CALCIUM (BEAKER) (test qrko=527) 8.8 mg/dL 8.4-10.2 EGFR (BEAKER) (test imhd=3073) 35 mL/min/1.73 sq m ESTIMATED GFR IS NOT ACCURATE CREATININE CLEARANCE IN PREDICTING GLOMERULAR FILTRATION RATE. ESTIMATED GFR IS NOT APPLICABLE FOR DIALYSIS PATIENTS. Specimen slightly ictericHEPATIC FUNCTION [id number] 06:08:00* Test Item Value Reference Range Comments TOTAL PROTEIN (BEAKER) (test ucmj=871) 6.3 gm/dL 6.0-8.3 Specimen slightly hemolyzed ALBUMIN (BEAKER) (test ejzg=9817) 2.7 g/dL 3.5-5.0 Specimen slightly hemolyzed BILIRUBIN TOTAL (BEAKER) (test eegt=463) 2.9 mg/dL 0.2-1.2 Specimen slightly hemolyzed BILIRUBIN DIRECT (BEAKER) (test sxiy=591) 1.1 mg/dL 0.1-0.5 Specimen slightly hemolyzed ALKALINE PHOSPHATASE (BEAKER) (test ewxv=543) 157 U/L 40-150 AST (SGOT) (BEAKER) (test fzyv=860) 73 U/L 5-34 Specimen slightly hemolyzed ALT (SGPT) (BEAKER) (test zvkt=241) 45 U/L 6-55 Specimen slightly hemolyzed Specimen slightly ictericCBC W/PLT COUNT & AUTO [id number] 05:53:00 * Test Item Value Reference Range Comments WHITE BLOOD CELL COUNT (BEAKER) (test tmoi=926) 6.6 K/ L 3.5-10.5 RED BLOOD CELL COUNT (BEAKER) (test zytw=390) 3.56 M/ L 3.93-5.22 HEMOGLOBIN (BEAKER) (test bldh=388) 11.6 GM/DL 11.2-15.7 HEMATOCRIT (BEAKER) (test paoy=745) 34.8 % 34.1-44.9 MEAN CORPUSCULAR VOLUME (BEAKER) (test hbaw=785) 97.8 fL 79.4-94.8 MEAN CORPUSCULAR HEMOGLOBIN (BEAKER) (test yvnf=025) 32.6 pg 25.6-32.2 MEAN CORPUSCULAR HEMOGLOBIN CONC (BEAKER) (test ffsc=920) 33.3 GM/DL 32.2-35.5 RED CELL DISTRIBUTION WIDTH (BEAKER) (test hjbf=739) 14.8 % 11.7-14.4 PLATELET COUNT (BEAKER) (test flvg=989) 80 K/CU MM 150-450 MEAN PLATELET VOLUME (BEAKER) (test enhi=366) 11.5 fL 9.4-12.3 NUCLEATED RED BLOOD CELLS (BEAKER) (test unxc=678) 0 /100 WBC 0-0 NEUTROPHILS RELATIVE PERCENT (BEAKER) (test mrqy=311) 57 % LYMPHOCYTES RELATIVE PERCENT (BEAKER) (test xbxn=849) 20 % MONOCYTES RELATIVE PERCENT (BEAKER) (test knbz=514) 20 % EOSINOPHILS RELATIVE PERCENT (BEAKER) (test ekuy=435) 2 % BASOPHILS RELATIVE PERCENT (BEAKER) (test ompe=057) 1 % NEUTROPHILS ABSOLUTE COUNT (BEAKER) (test kdot=830) 3.76 K/ L 1.56-6.13 LYMPHOCYTES ABSOLUTE COUNT (BEAKER) (test swlg=057) 1.34 K/ L 1.18-3.74 MONOCYTES ABSOLUTE COUNT (BEAKER) (test ilyy=485) 1.28 K/ L 0.24-0.36 EOSINOPHILS ABSOLUTE COUNT (BEAKER) (test plmu=006) 0.14 K/ L 0.04-0.36 BASOPHILS ABSOLUTE COUNT (BEAKER) (test brvj=236) 0.03 K/ L 0.01-0.08 IMMATURE GRANULOCYTES-RELATIVE PERCENT (BEAKER) (test ongb=4850) 0 % 0-1 U/S, ABDOMINAL, [id number] 04:55:00Reason for exam:->EMESISReason for exam:->hepatic encephalopathyFINAL REPORT Ultrasound of the Abdomen, complete Clinical [...] lower pole cyst. No shadowing calculus or hydro nephrosis. IVC/Aorta: Segments partially seen. Unremarkable. Impression: Statu s post cholecystectomy. No biliary ductal dilatation.Cirrhotic morphology of the liver. Small left hepatic cyst.Patent main portal vein. Signed: Karis Ross Verified Date/Time: 02/17/2018 04:55:29 Reading Location: [facility] C013Y CT Body Reading Room Electronically signed by: KARIS ROSS MD on 04:55 AM RAD, CHEST, 1 VIEW, NON [id number] 03:28:00Reason for exam:->EMESISReason for exam:->hepatic encephalopathyShould this be performed at the bedside?->YesFINAL REPORT Chest one view. Clinical history: Emesis and hepatic encephalopathy. Comparison: None. Technique: A single frontal view of the chest was obtained. Findings:The patient is status post median sternotomy.The heart is normal in size. The aorta is tortuous. There is no focal pulmonary consolidation, pleural effusion or pneumothorax. There is no pulmonary edema. There is lower cervical spine fusion hardware. Impression: No focal pulmonary consolidation. Signed: Karis Ross MDReport Verified Date/Time: 02/17/2018 03:28:02 Reading Location: [address] Body Reading Room , BRAIN, WITHOUT [id number] 02:34:00Reason for exam:->EMESISReason for exam:->confusion, hallucinations, possible seizureWhat is the patient's sedation requirement?->No SedationFINAL REPORT CLINICAL HISTORY: Confusion, loss of consciousness, [...] in the detection of acute ischemia. Signed: Donna Chin MDReport Verified Da te/Time: 02/17/2018 02:34:19 Reading Location: [address] Reading Room IC ACID, VENOUS, WHOLE [id number] 01:16:00* Test Item Value Reference Range Comments LACTATE BLOOD VENOUS (2) (BEAKER) (test bcya=2401) 2.7 mmol/L 0.5-2.2 Specimen slightly hemolyzed Specimen slightly [id number] 01:10:00* Test Item Value Reference Range Comments AMMONIA (BEAKER) (test whjm=527) 180 mol/L 18-72 Specimen slightly hemolyzed [id number] 00:56:00* Test Item Value Reference Range Comments PARTIAL THROMBOPLASTIN TIME (BEAKER) (test amia=883) 38.9 seconds 22.5-36.0 PROTHROMBIN [id number] 00:55:00* Test Item Value Reference Range Comments PROTIME (BEAKER) (test eztd=057) 17.0 seconds 11.7-14.7 INR (BEAKER) (test mdrt=956) 1.4 <=5.9 RECOMMENDED COUMADIN/WARFARIN INR THERAPY RANGESSTANDARD DOSE: 2.0 - 3.0 Inclu jasbir: PROPHYLAXIS for venous thrombosis, systemic embolization; TREATMENT for edu ous thrombosis and/or pulmonary embolus.HIGH RISK: Target INR is 2.5-3.5 for pat ients with mechanical heart valves.URINALYSIS W/ REFLEX URINE [id number] 00:53:00* Test Item Value Reference Range Comments COLOR (BEAKER) (test ewpl=816) Yellow CLARITY (BEAKER) (test vlwp=011) Hazy SPECIFIC GRAVITY UA (BEAKER) (test kwjm=408) 1.015 1.001-1.035 PH UA (BEAKER) (test todp=206) 6.5 5.0-8.0 PROTEIN UA (BEAKER) (test cfis=277) 70 mg/dL Negative GLUCOSE UA (BEAKER) (test smmg=761) Negative Negative KETONES UA (BEAKER) (test lexg=979) Negative Negative BILIRUBIN UA (BEAKER) (test uqtj=883) Negative Negative BLOOD UA (BEAKER) (test vguz=948) Moderate Negative NITRITE UA (BEAKER) (test yhzu=718) Negative Negative LEUKOCYTE ESTERASE UA (BEAKER) (test huuk=374) Large Negative UROBILINOGEN UA (BEAKER) (test qmvm=275) 12.0 mg/dL 0.2-1.0 RBC UA (BEAKER) (test jbjn=039) 7 /HPF WBC UA (BEAKER) (test gzno=064) 149 /HPF BACTERIA (BEAKER) (test hgjh=574) Many SQUAMOUS EPITHELIAL (BEAKER) (test sfds=001) 8 /HPF HYALINE CASTS (BEAKER) (test zotm=086) 10 /LPF GRANULAR CASTS (BEAKER) (test qyfd=574) 20 /LPF SOURCE(BEAKER) (test ralr=6211) [id number] 00:45:00* Test Item Value Reference Range Comments PHOSPHORUS (BEAKER) (test uzaq=547) 2.4 mg/dL 2.3-4.7 [id number] 00:45:00* Test Item Value Reference Range Comments MAGNESIUM (BEAKER) (test gsmr=128) 2.3 mg/dL 1.6-2.6 BASIC METABOLIC [id number] 00:45:00* Test Item Value Reference Range Comments SODIUM (BEAKER) (test alxk=947) 133 meq/L 136-145 POTASSIUM (BEAKER) (test lczc=920) 4.0 meq/L 3.5-5.1 CHLORIDE (BEAKER) (test aswz=316) 99 meq/L 98-107 CO2 (BEAKER) (test pcmt=707) 25 meq/L 22-29 BLOOD UREA NITROGEN (BEAKER) (test nvuw=818) 24 mg/dL 7-21 CREATININE (BEAKER) (test nvcp=976) 1.49 mg/dL 0.57-1.25 GLUCOSE RANDOM (BEAKER) (test oczq=454) 138 mg/dL 70-105 CALCIUM (BEAKER) (test oikx=460) 8.9 mg/dL 8.4-10.2 EGFR (BEAKER) (test rztd=2376) 34 mL/min/1.73 sq m ESTIMATED GFR IS NOT ACCURATE CREATININE CLEARANCE IN PREDICTING GLOMERULAR FILTRATION RATE. ESTIMATED GFR IS NOT APPLICABLE FOR DIALYSIS PATIENTS. Specimen moderately ictericHEPATIC FUNCTION [id number] 00:45:00* Test Item Value Reference Range Comments TOTAL PROTEIN (BEAKER) (test vgkf=691) 7.2 gm/dL 6.0-8.3 ALBUMIN (BEAKER) (test awoh=1130) 3.2 g/dL 3.5-5.0 BILIRUBIN TOTAL (BEAKER) (test pcje=508) 3.4 mg/dL 0.2-1.2 BILIRUBIN DIRECT (BEAKER) (test mutt=097) 1.3 mg/dL 0.1-0.5 ALKALINE PHOSPHATASE (BEAKER) (test tofz=640) 179 U/L 40-150 AST (SGOT) (BEAKER) (test nkxj=453) 73 U/L 5-34 ALT (SGPT) (BEAKER) (test ejhv=617) 48 U/L 6-55 Specimen moderately ictericBLOOD GAS, [id number] 00:33:00* Test Item Value Reference Range Comments PH VENOUS (BEAKER) (test nsyv=257) 7.40 7.32-7.42 PCO2 VENOUS (BEAKER) (test aksl=366) 44 mmHg 41-51 PO2 VENOUS (BEAKER) (test brdk=782) 94 mmHg 25-40 O2 SATURATION VENOUS (BEAKER) (test iuti=327) 97.2 % 40.0-70.0 HCO3 VENOUS (BEAKER) (test emwv=297) 27 mmol/L 21-29 BASE EXCESS VENOUS (BEAKER) (test vpgm=731) 1.6 mmol/L -2.0-3.0 PATIENT TEMPERATURE (BEAKER) (test htrg=9733) 37.0 C FIO2 (BEAKER) (test kixb=2604) 21.0 % CBC W/PLT COUNT & AUTO [id number] 00:19:00* Test Item Value Reference Range Comments WHITE BLOOD CELL COUNT (BEAKER) (test uxig=025) 6.8 K/ L 3.5-10.5 RED BLOOD CELL COUNT (BEAKER) (test kigc=793) 3.81 M/ L 3.93-5.22 HEMOGLOBIN (BEAKER) (test bfko=207) 12.6 GM/DL 11.2-15.7 HEMATOCRIT (BEAKER) (test ktke=283) 36.5 % 34.1-44.9 MEAN CORPUSCULAR VOLUME (BEAKER) (test xark=014) 95.8 fL 79.4-94.8 MEAN CORPUSCULAR HEMOGLOBIN (BEAKER) (test oche=661) 33.1 pg 25.6-32.2 MEAN CORPUSCULAR HEMOGLOBIN CONC (BEAKER) (test qkrv=922) 34.5 GM/DL 32.2-35.5 RED CELL DISTRIBUTION WIDTH (BEAKER) (test gdft=683) 14.8 % 11.7-14.4 PLATELET COUNT (BEAKER) (test afsl=830) 101 K/CU MM 150-450 MEAN PLATELET VOLUME (BEAKER) (test ejvy=598) 11.9 fL 9.4-12.3 NUCLEATED RED BLOOD CELLS (BEAKER) (test qopz=713) 0 /100 WBC 0-0 NEUTROPHILS RELATIVE PERCENT (BEAKER) (test lifr=216) 59 % LYMPHOCYTES RELATIVE PERCENT (BEAKER) (test hkky=328) 23 % MONOCYTES RELATIVE PERCENT (BEAKER) (test akpv=357) 15 % EOSINOPHILS RELATIVE PERCENT (BEAKER) (test gxjz=732) 2 % BASOPHILS RELATIVE PERCENT (BEAKER) (test fkfj=054) 1 % NEUTROPHILS ABSOLUTE COUNT (BEAKER) (test rnsr=278) 3.97 K/ L 1.56-6.13 LYMPHOCYTES ABSOLUTE COUNT (BEAKER) (test blvk=522) 1.53 K/ L 1.18-3.74 MONOCYTES ABSOLUTE COUNT (BEAKER) (test uunm=825) 1.03 K/ L 0.24-0.36 EOSINOPHILS ABSOLUTE COUNT (BEAKER) (test psiv=228) 0.16 K/ L 0.04-0.36 BASOPHILS ABSOLUTE COUNT (BEAKER) (test yotb=216) 0.05 K/ L 0.01-0.08 IMMATURE GRANULOCYTES-RELATIVE PERCENT (BEAKER) (test fgbq=6247) 0 % 0-1
[2018-03-21] MEDS ORDERED: SODIUM CHLORIDE 0.9% 1000ML 1,000 ML IV STA (20:49)
[2018-03-21] MEDS ORDERED: CEFTRIAXONE SOD 1 GM VIAL IV SCH (21:00)
[2018-03-21 21:14] LABS: BASOPHILS # (AUTO) 0.1 (0.0-0.1); BASOPHILS % 0.6 % (0.0-1.0); EOSINOPHILS # (AUTO) 0.2 (0.0-0.4); EOSINOPHILS % 1.7 % (0.0-6.0); HEMATOCRIT 37.4 % (34.2-44.1); HEMOGLOBIN 12.3 g/dL (12.0-16.0); LYMPHOCYTES # (AUTO) 1.9 (1.0-3.2); LYMPHOCYTES % 18.3 % (18.0-39.1); MEAN CORPUSCULAR HEMOGLOBIN 31.9 pg (28-32); MEAN CORPUSCULAR HGB CONC 32.9 g/dL (31-35); MEAN CORPUSCULAR VOLUME 96.9 fL (81-99); MONOCYTES # (AUTO) 1.6 (0.2-0.8); MONOCYTES % 15.5 % (4.4-11.3); NEUTROPHILS # (AUTO) 6.7 (2.1-6.9); NEUTROPHILS % 63.7 % (38.7-80.0); PLATELET COUNT 112 x10e3/uL (140-360); RED BLOOD COUNT 3.86 x10e6/uL (3.6-5.1); RED CELL DISTRIBUTION WIDTH 16.4 % (11.7-14.4)
[2018-03-21 21:28] LABS: ALBUMIN 2.3 g/dL (3.5-5.0); ALBUMIN/GLOBULIN RATIO 0.7 (0.8-2.0); ANION GAP 15.9 mmol/L (8-16); CALCIUM 8.5 mg/dL (8.4-10.2); CREATININE, SERUM 1.53 mg/dL (0.57-1.11); POTASSIUM 4.9 mmol/L (3.5-5.1)
[2018-03-21 21:44] LABS: B-TYPE NATRIURETIC PEPTIDE2 418.4 pg/mL (0-100)
[2018-03-21] MEDS ORDERED: SODIUM CHLORIDE 0.9% 50ML 50 ML ONE (22:13)
--- NOTE | 2018-03-21 22:17 | Diagnostic Imaging Report ---
EXAM: CT ABDOMEN AND PELVIS without IV CONTRAST INDICATION: Generalized weakness COMPARISON: None TECHNIQUE: The abdomen and pelvis were scanned using a multidetector helical scanner. Coronal and sagittal reformations were obtained. Dose modulation, iterative reconstruction, and/or weight based adjustment of the mA/kV was utilized to reduce the radiation dose to as low as reasonably achievable. Routine protocol performed. IV Contrast: None Oral Contrast: None CTDIvol has been reviewed. It is below the limits set by the Radiation Protocol Committee (RPC). FINDINGS: LOWER THORAX: No consolidations LIVER: Cirrhotic liver morphology. BILIARY: Cholecystectomy. Common bile duct dilation likely secondary to reservoir effect. SPLEEN: No masses PANCREAS: No masses ADRENALS: No nodules RIGHT KIDNEY: No nephroureterolithiasis or hydronephrosis. Simple cyst arising from the anterior lateral aspect of the interpolar region measuring 2.4 cm. LEFT KIDNEY: No nephroureterolithiasis or hydronephrosis. GI TRACT: No wall thickening or obstruction. Normal appendix. Incidental duodenal diverticulum. VESSELS: Moderate atherosclerotic changes of the abdominal aorta without aneurysm. Splenic varices. PERITONEUM/RETROPERITONEUM: Trace ascites. LYMPH NODES: No lymphadenopathy REPRODUCTIVE ORGANS: Normal BLADDER: Decompressed by catheter. SOFT TISSUES: Bilateral flank subcutaneous edema. BONES: No suspicious bone lesions. Marked degenerative disc predominantly at T12/L1. IMPRESSION: Cirrhosis with portal hypertension and trace ascites. Signed by: Dr. Chrissy Ayala M.D. on 03/21/2018 10:14 PM
--- NOTE | 2018-03-21 22:19 | Diagnostic Imaging Report ---
EXAM: CHEST SINGLE (PORTABLE), AP 1 view INDICATION: Weakness, altered mental status COMPARISON: None FINDINGS: LINES/TUBES: None LUNGS: No consolidations or edema. PLEURA: No effusions or pneumothorax. HEART AND MEDIASTINUM: Within normal limits for technique. Surgical changes of coronary artery bypass. BONES AND SOFT TISSUES: Lower cervical spine surgical hardware. Median sternotomy wires. IMPRESSION: No acute thoracic abnormality. Signed by: Dr. Chrissy Ayala M.D. on 03/21/2018 10:15 PM
[2018-03-21 22:40] LABS: CLARITY,URINE CLOUDY (CLEAR); COLOR,URINE YELLOW (YELLOW); LEUKOCYTE ESTERASE ,URINE 2+ (NEGATIVE); NITRITE,URINE NEGATIVE (NEGATIVE)
[2018-03-21 22:41] LABS: BACTERIA,URINE MANY /HPF; BILIRUBIN,URINE 1+ (NEGATIVE); EPITHELIAL CELLS,URINE RARE /LPF; KETONES,URINE TRACE (NEGATIVE); PROTEIN,URINE DIPSTICK 2+ (NEGATIVE); URINE UROBILINOGEN 1 mg/dL (0.2 - 1); WBC,URINE (MAN) 21-50 /HPF (0-5)
--- OUTSIDE RECORDS SUMMARY | 2018-03-21 23:43 | XMS REPORT | Clinical Summary ---
Author Author FILIBERTO WHOOP Organization [facility] [employer] [facility] Address Unknown Phone Unavailable Care Team Providers Care Product Manager Financial Services Name Role Phone Otf Levine MD PCP Allergies No Known Allergies [...] daily. Active C,E,zinc,copper Take 1 tablet 0 11/curzo3v/lut (OCUVITE by mouth ADULT 50 PLUS ORAL) [...] Taken Vital Sign Reading 02/18/2018 10:41 AM SCALES INSPECTOR Blood Pressure 134/59 02/18/2018 10:41 AM SCALES INSPECTOR Pulse 77 02/18/2018 10:41 AM SCALES INSPECTOR Temperature 36.6 C (97.8 F) 02/18/2018 10:41 AM SCALES INSPECTOR Respiratory Rate 18 02/18/2018 10:41 AM SCALES INSPECTOR Oxygen Saturation 94% 02/17/2018 10:11 PM SCALES INSPECTOR Inhaled Oxygen 21% Concentration 02/16/2018 11:14 PM SCALES INSPECTOR Weight 113.4 kg (250 lb) 02/16/2018 11:14 PM SCALES INSPECTOR Height 162.6 cm (5' 4") 02/16/2018 11:14 PM SCALES INSPECTOR Body Mass Index 42.91 Plan of Treatment Not on file Procedures Comments Procedure Name Priority Date/Time Associated Diagnosis MR ABDOMEN WITH/WITHOUT Routine 03/08/2018 Liver lesion IV CONTRAST 3:20 PM SCALES INSPECTOR Abnormal ultrasound POCT-CREATININE Routine 03/08/2018 2:29 PM SCALES INSPECTOR AMMONIA Routine 02/18/2018 5:13 AM SCALES INSPECTOR HEPATIC FUNCTION PANEL Routine 02/18/2018 5:13 AM SCALES INSPECTOR BASIC METABOLIC PANEL (7) Routine 02/18/2018 5:13 AM SCALES INSPECTOR CBC W/PLT COUNT & AUTO Routine 02/18/2018 DIFFERENTIAL 5:12 AM SCALES INSPECTOR CBC W/PLT COUNT & AUTO Routine 02/18/2018 DIFFERENTIAL 5:12 AM SCALES INSPECTOR POCT-LACTIC ACID, VENOUS Routine 02/17/2018 7:16 AM SCALES INSPECTOR CBC W/PLT COUNT & AUTO Routine 02/17/2018 DIFFERENTIAL 5:21 AM SCALES INSPECTOR CBC W/PLT COUNT & AUTO Routine 02/17/2018 DIFFERENTIAL 5:21 AM SCALES INSPECTOR HEPATIC FUNCTION PANEL Routine 02/17/2018 5:21 AM SCALES INSPECTOR BASIC METABOLIC PANEL (7) Routine 02/17/2018 5:21 AM SCALES INSPECTOR US ABDOMEN COMPLETE STAT 02/17/2018 4:10 AM SCALES INSPECTOR XR CHEST 1 VIEW STAT 02/17/2018 PORTABLE/BEDSIDE 3:[address] BRAIN WITHOUT IV STAT 02/17/2018 CONTRAST 2:32 AM SCALES INSPECTOR APTT STAT 02/17/2018 12:42 AM SCALES INSPECTOR PROTHROMBIN TIME/INR STAT 02/17/2018 12:42 AM SCALES INSPECTOR AMMONIA STAT 02/17/2018 12:35 AM SCALES INSPECTOR CBC W/PLT COUNT & AUTO STAT 02/17/2018 DIFFERENTIAL 12:06 AM SCALES INSPECTOR BLOOD GAS, VENOUS STAT 02/17/2018 12:06 AM SCALES INSPECTOR LACTIC ACID, VENOUS, STAT 02/17/2018 WHOLE BLOOD 12:06 AM SCALES INSPECTOR PHOSPHORUS STAT 02/17/2018 12:06 AM SCALES INSPECTOR MAGNESIUM STAT 02/17/2018 12:06 AM SCALES INSPECTOR HEPATIC FUNCTION PANEL STAT 02/17/2018 12:06 AM SCALES INSPECTOR BASIC METABOLIC PANEL (7) STAT 02/17/2018 12:06 AM SCALES INSPECTOR CBC W/PLT COUNT & AUTO STAT 02/17/2018 DIFFERENTIAL 12:06 AM SCALES INSPECTOR URINALYSIS W/ REFLEX STAT 02/17/2018 URINE CULTURE 12:01 AM SCALES INSPECTOR URINE CULTURE STAT 02/17/2018 12:01 AM SCALES INSPECTOR ED ECG INTERPRETATION Routine 02/16/2018 11:30 PM SCALES INSPECTOR ECG 12-LEAD Routine 02/16/2018 11:21 PM SCALES INSPECTOR Procedure Note - Interface, External Ris In - 02/16/2018 11:35 PM SCALES INSPECTOR Ventricula r Rate 52 BPM Atrial Rate 52 BPM P-R Interval 212 ms QRS Duration 90 ms Q-T Interval 506 ms QTC Calculatio n(Bazett) 470 ms P [place] 72 degrees R [place] 56 degrees T [place] 1 degrees Sinus bradycardi a with 1st degree A-V block Nonspecifi c ST and T wave abnormalit y Prolonged QT Abnormal ECG No previous ECGs available ECG 12-LEAD STAT 02/16/2018 11:21 PM SCALES INSPECTOR after 03/20/2017 Results * MR abdomen without & with IV contrast (03/08/2018 3:20 PM SCALES INSPECTOR) Narrative Performed At FINAL REPORT [facility] MRI of the abdomen dated March [...] MD Report Verified Date/Time:03/08/2018 18:05:21 Reading Location: [facility] B1 C013Y CT Body Reading Room Procedure Note Interface, External Ris In - 03/08/2018 6:07 PM SCALES INSPECTOR FINAL REPORT MRI of the abdomen dated [...] Report Verified Date/Time: 03/08/2018 18:05:21 Reading Location: [facility] C013Y CT Body Reading Room Performing Organization Address City/[facility]/Zipcode Phone Number GE RIS * POC-Creatinine (03/08/2018 2:29 PM SCALES INSPECTOR) POC-Creatinine 0.9Comment: TESTED AT [facility]-KG 0.6 - 1.3 mg/dL [address] [place] [address] POC-EGFR 61 mL/min/1.73M2 [facility] Specimen Blood Narrative Performed At Performing Organization Address City/State/Zipcode Phone Number [address] [address] [facility] * Ammonia (02/18/2018 5:13 AM SCALES INSPECTOR) Only the most recent of 2 results within the time period is included. Ammonia 64 18 - 72 mol/L [facility] Specimen Blood Performing Organization Address City/[facility]/Zipcode Phone Number [facility] [address] [place] [address] [facility] * Hepatic function panel (02/18/2018 5:13 AM SCALES INSPECTOR) Only the most recent of 3 results within the time period is included. Protein, Total 6.2 6.0 - 8.3 gm/dL [facility] Albumin 2.8 (L) 3.5 - 5.0 g/dL [facility] Total Bilirubin 3.3 (H) 0.2 - 1.2 mg/dL [facility] Bilirubin, Direct 1.0 (H) 0.1 - 0.5 mg/dL [facility] Alkaline Phosphatase 139 40 - 150 U/L [facility] AST 84 (H) 5 - 34 U/L [facility] ALT 50 6 - 55 U/L [facility] Specimen Blood Narrative Performed At Specimen moderately icteric [facility] Performing Organization Address City/State/Zipcode Phone Number [facility] [address] [place] [address] [facility] * Basic metabolic panel (02/18/2018 5:13 AM SCALES INSPECTOR) Only the most recent of 3 results within the time period is included. Sodium 137 136 - 145 meq/L [facility] Potassium 3.8 3.5 - 5.1 meq/L [facility] Chloride 108 (H) 98 - 107 meq/L [facility] CO2 20 (L) 22 - 29 meq/L [facility] BUN 20 7 - 21 mg/dL [facility] Creatinine 1.31 (H) 0.57 - 1.25 mg/dL [facility] Glucose 101 70 - 105 mg/dL [facility] Calcium 8.5 8.4 - 10.2 mg/dL [facility] EGFR 39Comment: ESTIMATED GFR IS mL/min/1.[address] [facility] NOT ACCURATE CREATININE [facility] CLEARANCE IN PREDICTING GLOMERULAR FILTRATION RATE. ESTIMATED GFR IS NOT APPLICABLE FOR DIALYSIS PATIENTS. Specimen Blood Narrative Performed At Specimen moderately icteric [facility] Performing Organization Address City/State/Zipcode Phone Number [facility] [address] [place] [address] [facility] * CBC with platelet count + automated diff (02/18/2018 5:12 AM SCALES INSPECTOR) Only the most recent of 3 results within the time period is included. WBC 5.9 3.5 - 10.5 K/L [facility] RBC 3.62 (L) 3.93 - 5.22 M/L [facility] Hemoglobin 11.7 11.2 - 15.7 GM/DL [facility] Hematocrit 35.7 34.1 - 44.9 % [facility] MCV 98.6 (H) 79.4 - 94.8 fL [facility] MCH 32.3 (H) 25.6 - 32.2 pg [facility] MCHC 32.8 32.2 - 35.5 GM/DL [facility] RDW 15.2 (H) 11.7 - 14.4 % [facility] Platelets 87 (L) 150 - 450 K/CU MM [facility] MPV 11.4 9.4 - 12.3 fL [facility] nRBC 0 0 - 0 /100 WBC [facility] % Neutros 63 % [facility] % Lymphs 19 % [facility] % Monos 16 % [facility] % Eos 2 % [facility] % Baso 1 % [facility] # Neutros 3.69 1.56 - 6.13 K/L [facility] # Lymphs 1.09 (L) 1.18 - 3.74 K/L [facility] # Monos 0.96 (H) 0.24 - 0.36 K/L [facility] # Eos 0.09 0.04 - 0.36 K/L [facility] # Baso 0.04 0.01 - 0.08 K/L [facility] Immature 0 0 - 1 % [facility] Granulocytes-[facility] Specimen Blood Performing Organization Address City/[facility] Phone Number [address] [address] [facility] * POC-Lactic Acid, Venous (02/17/2018 7:16 AM SCALES INSPECTOR) POC-Lactic Acid, Venous 2.8 (H)Comment: TESTED AT 0.9 - 1.7 mmol/L [address] [address] Specimen Blood Performing Organization Address City/[facility] Phone Number [place] [phone] [place] [address] * US abdomen complete (02/17/2018 4:10 AM SCALES INSPECTOR) Narrative Performed At FINAL REPORT [facility] Ultrasound of the Abdomen, complete Clinical History:Emesis [...] MD Report Verified Date/Time:02/17/2018 04:55:29 Reading Location: [address] Body Reading Room Procedure Note Interface, External Ris In - 02/17/2018 4:57 AM SCALES INSPECTOR FINAL REPORT Ultrasound of the Abdomen, complete [...] Report Verified Date/Time: 02/17/2018 04:55:29 Reading Location: [facility] C013Y CT Body Reading Room Performing Organization Address [facility] Phone Number GE [facility] * XR chest 1 view portable / bedside (02/17/2018 3:27 AM SCALES INSPECTOR) Narrative Performed At FINAL REPORT [facility] Chest one view. Clinical history: Emesis and [...] MD Report Verified Date/Time:02/17/2018 03:28:02 Reading Location: [facility] C013Y CT Body Reading Room Procedure Note Interface, External Ris In - 02/17/2018 3:30 AM SCALES INSPECTOR FINAL REPORT Chest one view. Clinical history: [...] Report Verified Date/Time: 02/17/2018 03:28:02 Reading Location: [facility] C013Y CT Body Reading Room Performing Organization Address [facility] Phone Number [facility] * CT brain without IV contrast (02/17/2018 2:32 AM SCALES INSPECTOR) Narrative Performed At FINAL REPORT [facility] CLINICAL HISTORY: Confusion, loss of consciousness, emesis, [...] MD Report Verified Date/Time:02/17/2018 02:34:19 Reading Location: [address] Reading Room Procedure Note Interface, External Ris In - 02/17/2018 2:36 AM SCALES INSPECTOR FINAL REPORT CLINICAL HISTORY: Confusion, loss of [...] Report Verified Date/Time: 02/17/2018 02:34:19 Reading Location: [address] Reading Room Performing Organization Address City/State/Zipcode Phone Number GE R[facility] * PTT (aPTT) (02/17/2018 12:42 AM SCALES INSPECTOR) PTT 38.9 (H) 22.5 - 36.0 seconds [facility] Specimen Blood Performing Organization Address City/[facility] Hospitalcode Phone Number [facility] [address] [place] [address] [phone] * PT/INR (02/17/2018 12:42 AM SCALES INSPECTOR) Protime 17.0 (H) 11.7 - 14.7 seconds [facility] INR 1.4 <=5.9 [facility] Specimen Blood Narrative Performed At RECOMMENDED COUMADIN/WARFARIN INR THERAPY RANGES [facility] STANDARD DOSE: 2.0 - 3.0 Includes: PROPHYLAXIS for venous thrombosis, [facility] systemic embolization; TREATMENT for venous thrombosis and/or pulmonary embolus. HIGH RISK: Target INR is 2.5-3.5 for patients with mechanical heart valves. Performing Organization Address [facility] Phone Number [address] * Lactic acid, venous, whole blood (02/17/2018 12:06 AM SCALES INSPECTOR) Lactate, Venous 2.7 (H)Comment: Specimen 0.5 - 2.2 mmol/L [facility] slightly hemolyzed [facility] Specimen Blood Narrative Performed At Specimen slightly icteric [facility] Performing Organization Address [facility]code Phone Number [facility] [address] [place] [address] [phone] [place] [address] * Phosphorus (02/17/2018 12:06 AM SCALES INSPECTOR) Phosphorus 2.4 2.3 - 4.7 mg/dL [facility] Specimen Blood Performing Organization Address City/[facility]/Zipcode Phone Number [facility] [address] [place] [phone] [facility] * Magnesium (02/17/2018 12:06 AM SCALES INSPECTOR) Magnesium 2.3 1.6 - 2.6 mg/dL [facility] Specimen Blood Performing Organization Address City/State/Zipcode Phone Number [address] [address] [facility] * Blood gas, venous (02/17/2018 12:06 AM SCALES INSPECTOR) pH, Miguel 7.40 7.32 - 7.42 [facility] pCO2, Miguel 44 41 - 51 mmHg [facility] pO2, Miguel 94 (H) 25 - 40 mmHg [facility] O2 Sat, Miguel 97.2 (H) 40.0 - 70.0 % [facility] HCO3, Miguel 27 21 - 29 mmol/L [facility] Base Excess, Miguel 1.6 -2.0 - 3.0 mmol/L [facility] Patient Temperature 37.0 C [facility] FIO2 21.0 % [facility] Specimen Blood Performing Organization Address City/State/Zipcode Phone Number [address] [address] [facility] * Urinalysis w/Microscopic + Reflex to Culture (02/17/2018 12:01 AM SCALES INSPECTOR) Color, UA Yellow [facility] Clarity, UA Hazy [facility] Specific [place], UA 1.015 1.001 - 1.035 [facility] pH, UA 6.5 5.0 - 8.0 [facility] Protein, UA 70 mg/dL (A) Negative [facility] Glucose, UA Negative Negative [facility] Ketones, UA Negative Negative [facility] Bilirubin, UA Negative Negative [facility] Blood, UA Moderate (A) Negative [facility] Nitrite, UA Negative Negative [facility] Leukocytes, UA Large (A) Negative [facility] Urobilinogen, UA 12.0 (H) 0.2 - 1.0 mg/dL [facility] RBC, UA 7 /HPF [facility] WBC, UA 149 /HPF [facility] Bacteria, UA Many [facility] Squam Epithel, UA 8 /HPF [facility] Hyaline Casts, UA 10 /LPF [facility] Granular Casts, UA 20 /LPF [facility] Specimen Source [facility] Specimen Urine - Urine, Clean Catch Performing Organization Address City/State/Zipcode Phone Number [facility] [address] [place] [address] [facility] * Urine culture (02/17/2018 12:01 AM SCALES INSPECTOR) Result RAOULTELLA ORNITHINOLYTICA (A) [facility] Result ENTEROBACTER CLOACAE COMPLEX [facility] () [facility] Specimen Urine - Urine, Clean [...] Susceptible Performing Organization Address City/State/Zipcode Phone Number [facility] [address] [place] [address] [facility] * ECG/EKG Interpretation (02/16/2018 11:30 PM SCALES INSPECTOR) Narrative Performed At Na Apodaca MD 02/19/20188:51 [...] flattening in lead(s) V4, V5 and V6. [place] is normal. Other findings include: QTc 0.470and prolonged QTc interval. Clinical Impression: abnormal ECGECG reviewed and does not meet STEMI criteria. Patient tolerance: Patient tolerated the procedure well with no immediate complications * ECG 12 lead (02/16/2018 11:21 PM SCALES INSPECTOR) Narrative Performed At Ventricular Rate 52 BPM GE MUSE Atrial Rate 52 BPM P-R Interval 212 ms QRS Duration 90 ms Q-T Interval 506 ms QTC Calculation(Bazett) 470 ms P [place] 72 degrees R [place] 56 degrees T [place] 1 degrees Sinus bradycardia with 1st degree A-V block Nonspecific ST and T wave abnormality Prolonged QT Abnormal ECG No previous ECGs available Confirmed by Сергей WYATT MICHAEL ([id number]) on 02/17/2018 7:21:49 AM Procedure Note Interface, External Ris In - 02/17/2018 7:21 AM SCALES INSPECTOR Ventricular Rate 52 BPM Atrial Rate 52 BPM P-R Interval 212 ms QRS Duration 90 ms Q-T Interval 506 ms QTC Calculation(Bazett) 470 ms P [place] 72 degrees R [place] 56 degrees T [place] 1 degrees Sinus bradycardia with 1st degree A-V block Nonspecific ST and T wave abnormality Prolonged QT Abnormal ECG No previous ECGs available Confirmed by Сергей WYATT MICHAEL ([id number]) on 02/17/2018 7:21:49 AM Performing Organization Address City/State/Zipcode Phone Number GE BRUCE after 03/20/2017 Insurance Payer Benefit Subscriber ID Type Phone Address Plan / Group [employer] xxxxxxxxxxx MEDICARE ADV Advance Directives For more information, please contact: [facility] [address] [place] [address] Date Inactivated Comments Code Status Date Activated Full Code 02/17/2018 3:05 AM This code status was determined by: Patient
[2018-03-22] VITALS (9 sets, daily range): BP systolic 102–122; BP diastolic 43–90
[2018-03-22] MEDS ORDERED: LACTULOSE10 GM/151 PO (00:46)
[2018-03-22] MEDS ORDERED: SYMBICORT 16010.2 GM INH (00:46)
[2018-03-22] MEDS ORDERED: BISOPROLOL FUMAR5 MG PO (00:46)
[2018-03-22] MEDS ORDERED: TYLENOL # 31 EA PO (00:46)
[2018-03-22] MEDS ORDERED: SPIRONOLACTONE25 MG PO (00:46)
[2018-03-22] MEDS ORDERED: ATORVASTATIN CA80 MG PO (00:46)
[2018-03-22] MEDS ORDERED: CLOPIDOGREL75 MG PO (00:46)
[2018-03-22] MEDS ORDERED: GABAPENTIN300 MG PO (00:46)
[2018-03-22] MEDS ORDERED: LOSARTAN-HCTZ1 EACH PO (00:46)
[2018-03-22] MEDS ORDERED: LATANOPROST2.5 ML OU (00:46)
[2018-03-22] MEDS ORDERED: RANITIDINE HCL150 MG PO (00:46)
[2018-03-22] MEDS ORDERED: NITROGLYCERIN0.4 MG SL (00:49)
[2018-03-22] MEDS ORDERED: ASPIR 8181 MG PO (00:49)
--- NOTE | 2018-03-22 02:50 | NUR ---
Report received from FOLDER MACHINE Jaspreet.Patient transferred from ER @ 0105 by Stretcher.Patient was weakness/little confused,alert/orientedx1-2. Denied pain and no SOB. No respiratory distress noted. Patient continued on 2liters oxygen via nasal canula,Spo2 maintained 99%. patient in the room. Head to toe assessment completed. No skin breakdown noted. Small redness noted on right and left buttocks. Bed in lower position,locked. Patient and instructed to call for help as needed. Will continue to monitor.
--- NOTE | 2018-03-22 07:19 | NUR ---
Report given to upcoming RN Nuris,walking round done.
[2018-03-22 15:05] LABS: ALBUMIN/GLOBULIN RATIO 0.6 (0.8-2.0); ANION GAP 15.5 mmol/L (8-16); CALCIUM 8.2 mg/dL (8.4-10.2); CREATININE, SERUM 1.49 mg/dL (0.57-1.11); POTASSIUM 4.5 mmol/L (3.5-5.1)
--- NOTE | 2018-03-22 16:34 | NUR ---
Director Product Safety to bedside to discuss plan of care with patient/family. CM/SW role and care transitions discussed. Anticipated discharge plan discussed along with duration of care. CM/SW discussed patients right to make decisions in care. CM/SW work hours given. Patient lives: PATIENT LIVES IN [address] STORY HOME IN [place], [place] WITH Admit/Transfer: ED POA/Emergency contact: - LEROY TOSCANO- [phone] Current/Previous Home Health: NONE PCP/Follow-up Care: DR. GABY ROLAND Current/Previous DME: [employer]LLING [employer], [employer]; WHEELCHAIR Other Services: NONE Employment Status: EMPLOYED Areas of Concerns: MOBILITY Referral Needs: POSSIBLE LONGTERM PENDING PT RECOMMENDATION Education Needs: NOT AT THIS TIME IMM/RASHID given and signed (if applicable): NO Goal for discharge: PATIENT TO DISCHARGE HOME INDEPENDENT WITH NO NEEDS CM left business card at the bedside with contact information. Name and number was also written on the patients whiteboard. Patient verbalized understanding of discussion. CM will follow-up with ongoing discharge and transition of care needs.
--- NOTE | 2018-03-22 16:35 | Diagnostic Imaging Report ---
EXAM: CHEST SINGLE (PORTABLE), AP 1 view INDICATION: Rule out pulmonary edema. COMPARISON: Chest radiograph 03/21/2018. FINDINGS: LINES/TUBES: None LUNGS: Lungs are moderately inflated. Mild patchy bibasilar atelectasis. No evidence of lobar pneumonia or pulmonary edema. PLEURA: No effusions or pneumothorax. HEART AND MEDIASTINUM: Possible mild cardiomegaly. Surgical changes of coronary artery bypass. BONES AND SOFT TISSUES: Lower cervical spine fixation hardware. Median sternotomy wires. No acute bony findings. IMPRESSION: No acute radiographic abnormality. No evidence of pulmonary edema. Signed by: Dr. Ashlyn Weber MD on 03/22/2018 4:32 PM
[2018-03-22] MEDS ORDERED: NON-FORMULARY MEDICATION (Lactulose 20 GM) PO SCH (17:00)
--- NOTE | 2018-03-22 18:39 | NUR ---
CALLED DR. Alexis AKHTAR TO REPORT CURRENT CMP VALUES, PER HIS ORDERS, MADE HIM AWARE OF PATIENT'S BLOOD PRESSURE DIASTOLIC PRESSURE 120/45 HR 68 OXYGEN 98 ROOM AIR AND PATIENT'S 12 HOUR OUTPUT 250CC FROM MÉNDEZ. RECEIVED ORDERS TO ADMINISTER LACTATED RINGERS, @50CC/HR,
[2018-03-22] MEDS: LACTULOSE SYRUP 20 GM/30 ML UDC PO SCH (18:45)
[2018-03-22] MEDS ORDERED: LACTATED RINGER'S 1,000 ML IV ONE (18:45)
[2018-03-22] MEDS: LACTOBACILLUS ACIDOPHILUS CAPSULE PO SCH (18:45)
[2018-03-22] MEDS: BUDESONIDE/FORMOTEROL 160/4.5MCG INHALER INH SCH (19:00)
[2018-03-22] MEDS ORDERED: SODIUM CHLORIDE 0.9% 250ML 250 ML ONE (20:35)
[2018-03-22] MEDS: CEFTRIAXONE SOD 1 GM/NS 50 ML 50 ML IV SCH (20:36)
[2018-03-22] MEDS ORDERED: ATORVASTATIN 40 MG TAB PO SCH (21:00)
[2018-03-23 04:30] VITALS: BP 107/40
[2018-03-23 04:44] LABS: BASOPHILS # (AUTO) 0.1 (0.0-0.1); BASOPHILS % 0.5 % (0.0-1.0); EOSINOPHILS # (AUTO) 0.1 (0.0-0.4); EOSINOPHILS % 0.4 % (0.0-6.0); HEMOGLOBIN 10.2 g/dL (12.0-16.0); LYMPHOCYTES % 17.5 % (18.0-39.1); MEAN CORPUSCULAR HEMOGLOBIN 32.2 pg (28-32); MEAN CORPUSCULAR VOLUME 94.6 fL (81-99); MONOCYTES # (AUTO) 1.9 (0.2-0.8); MONOCYTES % 16.8 % (4.4-11.3); NEUTROPHILS # (AUTO) 7.3 (2.1-6.9); NEUTROPHILS % 64.5 % (38.7-80.0); PLATELET COUNT 102 x10e3/uL (140-360); RED BLOOD COUNT 3.17 x10e6/uL (3.6-5.1); RED CELL DISTRIBUTION WIDTH 16.5 % (11.7-14.4)
[2018-03-23 04:57] LABS: INR 2.12; PROTHROMBIN TIME 25.4 seconds (11.9-14.5)
[2018-03-23 05:04] LABS: ALBUMIN 1.9 g/dL (3.5-5.0); ANION GAP 13.7 mmol/L (8-16); BILIRUBIN,DIRECT 2.9 mg/dL (0.0-0.5); CREATININE, SERUM 1.64 mg/dL (0.57-1.11); POTASSIUM 4.7 mmol/L (3.5-5.1)
--- NOTE | 2018-03-23 06:27 | NUR ---
Patient and patient's requesting to be moved back onto a regular mattress bed. The patient complains of being very uncomfortable and unable to move herself. The complains that she is uncomfortable in the bed and is unable to assist her properly with her ADLs and ROM. Patient and family educated on importance of turning and repositioning to prevent wounds and reasons of why placed on rotational bed.
[2018-03-23 08:04] VITALS: BP 104/42
[2018-03-23] MEDS ORDERED: NON-FORMULARY MEDICATION (Atorvastatin Calcium 80 MG) PO SCH (09:00)
[2018-03-23] MEDS: LACTOBACILLUS ACIDOPHILUS CAPSULE PO SCH ×2 (09:53→17:00)
[2018-03-23] MEDS: LACTULOSE SYRUP 20 GM/30 ML UDC PO SCH (09:53)
[2018-03-23 10:01] VITALS: BP 104/42
[2018-03-23] MEDS ORDERED: ALBUTEROL/IPRATROPIUM 3 ML NEB NEB PRN (13:30)
--- NOTE | 2018-03-23 14:46 | Diagnostic Imaging Report ---
EXAM: CHEST SINGLE (PORTABLE), AP 1 view INDICATION: Rule out pulmonary edema. COMPARISON: Chest radiograph 03/22/2018. FINDINGS: LINES/TUBES: None LUNGS: Lungs are moderately inflated. Mild patchy bibasilar atelectasis. No evidence of lobar pneumonia or pulmonary edema. PLEURA: No effusions or pneumothorax. HEART AND MEDIASTINUM: Possible mild cardiomegaly. Surgical changes of coronary artery bypass. BONES AND SOFT TISSUES: Lower cervical spine fixation hardware. Median sternotomy wires. No acute bony findings. IMPRESSION: No acute radiographic abnormality. No evidence of pulmonary edema. Signed by: Dr. Ashlyn Weber MD on 03/23/2018 2:43 PM
[2018-03-23] MEDS: LACTATED RINGER'S 1,000 ML IV SCH (15:31)
[2018-03-23] MEDS: BUDESONIDE/FORMOTEROL 160/4.5MCG INHALER INH SCH (19:00)
--- NOTE | 2018-03-23 19:04 | NUR ---
CALLED DR. Alexis AKHTAR MADE HIM AWARE DR. ECHEVERRIA, GAVE ME ORDERS TO D/C ATORVASTATIN, AND TO ORDER CMP, RECEIVED ORDERS FROM DR. AKHTAR TO D/C BMP 03/24/18
--- NOTE | 2018-03-23 19:39 | Consultation ---
DATE OF CONSULTATION: CHIEF COMPLAINT: Jaundice, altered mental status. HISTORY OF PRESENT ILLNESS: A very pleasant 77-year-old lady coming with altered mental status and cirrhosis. Patient has liver failure and she has possible infection. She also has poor renal function. Patient is obese with probably steatohepatitis because of her cirrhosis. She also takes atorvastatin as one of her medications. PAST MEDICAL HISTORY: Obesity, cirrhosis. MEDICATIONS: See list. They include atorvastatin, aspirin, Plavix, gabapentin, lactulose. FAMILY HISTORY: Noncontributory. REVIEW OF SYSTEMS: Patient is little confused. PHYSICAL EXAMINATION VITAL SIGNS: Blood pressure 140/80, pulse 80, temperature 98. GENERAL: An obese white lady. She is jaundiced. HEART: Regular rate and rhythm. ABDOMEN: Soft, nontender. EXTREMITIES: No edema. NEURO: Nonfocal. ASSESSMENT AND PLAN: Liver cirrhosis, [id number] liver failure, sepsis and medications can be contributors. Atorvastatin and sertraline needs to be discontinued. Treatment for urinary tract infection is to be instituted. I will recommend at this time to continue current treatment. She will need multiple consults including kidney. At this time, her prognosis is very guarded due to her age and multiorgan failure. Job#: [id number] JACQUELINE
[2018-03-23 20:00] VITALS: BP 118/46
[2018-03-23 20:10] LABS: CREATININE,URINE RANDOM 142.14 mg/dL (47-110); TOTAL PROTEIN, URINE 134.3 mg/dL (1-14)
[2018-03-23 20:11] LABS: SODIUM,URINE < 20 mmol/L
[2018-03-23] MEDS: CEFTRIAXONE SOD 1 GM/NS 50 ML 50 ML IV SCH (21:18)
--- NOTE | 2018-03-23 22:30 | NUR ---
Patient complained feeling uncomfortably due to lots of gas in her stomach. Called Dr Rj MD ordered Pepcid 20mg po QHs at this time.
[2018-03-23] MEDS: FAMOTIDINE 20 MG TAB PO SCH (22:38)
[2018-03-24] VITALS: BP 118/54
[2018-03-24] MEDS: LACTATED RINGER'S 1,000 ML IV SCH ×2 (01:55→09:30)
[2018-03-24] MEDS ORDERED: MORPHINE SULFATE 2 MG/ML SYR IV PRN (02:15)
[2018-03-24] MEDS ORDERED: ACETAMINOPHEN 325 MG TAB PO PRN (02:15)
--- NOTE | 2018-03-24 02:15 | NUR ---
Patient complained severe headache and nausea at this time. Called Dr. De La Rosa to informed about patient condition. ordered tramadol 25mg po q6h PRN for moderate pain and IV morphine 2mg q4h PRN for severe pain at his time.
[2018-03-24] MEDS: TRAMADOL HCL 50 MG TAB PO PRN (02:31)
[2018-03-24] MEDS: ONDANSETRON HCL INJ 2 MG/ML VIAL IV PRN ×2 (02:31→10:10)
[2018-03-24 04:00] VITALS: BP 118/54
[2018-03-24 05:28] LABS: BASOPHILS # (AUTO) 0.1 (0.0-0.1); BASOPHILS % 0.4 % (0.0-1.0); EOSINOPHILS % 0.2 % (0.0-6.0); HEMATOCRIT 31.3 % (34.2-44.1); HEMOGLOBIN 10.4 g/dL (12.0-16.0); LYMPHOCYTES # (AUTO) 1.8 (1.0-3.2); LYMPHOCYTES % 13.6 % (18.0-39.1); MEAN CORPUSCULAR HEMOGLOBIN 31.7 pg (28-32); MEAN CORPUSCULAR HGB CONC 33.2 g/dL (31-35); MEAN CORPUSCULAR VOLUME 95.4 fL (81-99); MONOCYTES % 15.9 % (4.4-11.3); NEUTROPHILS # (AUTO) 8.9 (2.1-6.9); NEUTROPHILS % 69.7 % (38.7-80.0); PLATELET COUNT 113 x10e3/uL (140-360); RED BLOOD COUNT 3.28 x10e6/uL (3.6-5.1); RED CELL DISTRIBUTION WIDTH 16.8 % (11.7-14.4)
[2018-03-24 05:42] LABS: ALBUMIN 1.9 g/dL (3.5-5.0); ALBUMIN/GLOBULIN RATIO 0.6 (0.8-2.0); ANION GAP 14.9 mmol/L (8-16); CREATININE, SERUM 1.66 mg/dL (0.57-1.11); POTASSIUM 4.9 mmol/L (3.5-5.1)
[2018-03-24 06:03] LABS: ALBUMIN 1.9 g/dL (3.5-5.0); BILIRUBIN,DIRECT 3.1 mg/dL (0.0-0.5); MAGNESIUM 2.3 MG/DL (1.3-2.1)
[2018-03-24 06:05] LABS: INR 2.02; PROTHROMBIN TIME 24.4 seconds (11.9-14.5)
--- NOTE | 2018-03-24 06:42 | NUR ---
Called Dr. De La Rosa to informed about critical lab value, APTT:49.1 this time. said this is fine.
[2018-03-24] MEDS: BUDESONIDE/FORMOTEROL 160/4.5MCG INHALER INH SCH ×2 (07:00→19:00)
--- NOTE | 2018-03-24 07:30 | NUR ---
Report given to AM nurse Valorie,walking round done.
[2018-03-24 07:39] VITALS: BP 121/49
--- NOTE | 2018-03-24 08:08 | NUR ---
pt resting in bed, at bedside. no c/o pain or s/s distress at this time. will continue to monitor
[2018-03-24 08:16] LABS: LYMPHOCYTES % (MANUAL) 11 % (19-48); MONOCYTES % (MANUAL) 8 % (3.4-9.0); NEUTROPHILS % (MANUAL) 80 % (40-74)
[2018-03-24 08:17] LABS: PLATELET ESTIMATE SLIGHTLY DECREASED; PLATELET MORPHOLOGY COMMENT NORMAL; RBC MORPHOLOGY COMMENT NORMAL
[2018-03-24 08:18] LABS: ANISOCYTOSIS SLIGHT; HYPOCHROMASIA SLIGHT
[2018-03-24] MEDS: LACTULOSE SYRUP 20 GM/30 ML UDC PO SCH (09:42)
[2018-03-24] MEDS: LACTOBACILLUS ACIDOPHILUS CAPSULE PO SCH ×2 (09:42→16:39)
--- NOTE | 2018-03-24 10:21 | NUR ---
pt c/o N/V, states not sure if zofran helping or not. admin dose. MD updated that pt sodium levels decreased, liver and kidney labs worsening. per pt , they were not wanting to be on IVF bc of pt edema and concern about pulmonary. obtained order for phenergan in addition to zofran, explained need for IVF to assist with NA levels per MD, cxr ordered to monitor for possible pulm.edema. will continue to monitor.
[2018-03-24 13:02] VITALS: BP 124/55
--- NOTE | 2018-03-24 13:08 | Diagnostic Imaging Report ---
EXAM: CHEST 2 VIEWS INDICATION: Rule out pulmonary edema. COMPARISON: Chest radiograph 03/23/2018. FINDINGS: LINES/TUBES: None LUNGS: Lungs are moderately inflated. There are mild perihilar and interstitial opacities. Mild patchy opacities at the left lung base. PLEURA: No effusions or pneumothorax. HEART AND MEDIASTINUM: Mild cardiomegaly. Surgical changes of coronary artery bypass. BONES AND SOFT TISSUES: Lower cervical spine fixation hardware. Median sternotomy wires. No acute bony findings. IMPRESSION: Mild cardiomegaly with mild pulmonary interstitial edema. Patchy left basilar opacity, most likely atelectasis. Signed by: Dr. Ashlyn Weber MD on 03/24/2018 1:04 PM
[2018-03-24] MEDS: PROMETHAZINE 12.5MG/ NACL 0.9% 12.5 MG/50 ML BAG IV PRN (13:26)
[2018-03-24] MEDS ORDERED: GABAPENTIN 300 MG CAP PO SCH (14:00)
[2018-03-24] MEDS ORDERED: FUROSEMIDE INJ 100 MG in SODIUM CHLORIDE 0.9% 100 ML 90 ML IV SCH (15:15)
[2018-03-24 15:36] VITALS: BP 115/44
--- NOTE | 2018-03-24 16:26 | Diagnostic Imaging Report ---
EXAM: Renal Ultrasound INDICATION: ^RENAL FAILURE COMPARISON: CT dated 03/21/2018 TECHNIQUE: Transverse and longitudinal images of the kidneys and bladder were obtained. FINDINGS: Limited study due to body habitus. Right Kidney: Size: 11.1 cm Echogenicity: Normal Parenchymal thickness: Normal Collecting system: No hydronephrosis Stones: None Cyst/Mass: 2.3 x 2.1 x 1.9 cm midpole cyst. Left Kidney: Size: 10.2 cm Echogenicity: Normal Parenchymal thickness: Normal Collecting system: No hydronephrosis Stones: None Cyst/Mass: None Bladder: Decompressed by a catheter in place. IMPRESSION: Limited study due to body habitus. Unremarkable renal ultrasound. 2.3 cm right renal midpole cyst. Signed by: Dr. Param Dick MD on 03/24/2018 4:22 PM
--- NOTE | 2018-03-24 19:20 | NUR ---
PATIENT RESTING IN BED, AT THE BEDSIDE. REPORT RECEIVED FROM AM NURSE. ROUNDS DONE. CALL LIGHT IN REACH. WILL CONTINUE TO MONITOR. CONTINUE RECEIVING LASIX ORDERED.
[2018-03-24] MEDS ORDERED: FAMOTIDINE 20 MG TAB PO SCH (21:00)
--- NOTE | 2018-03-24 21:00 | NUR ---
POSITIONED PATIENT TO THE LEFT SIDE, SECURED WITH PILLOW. PATIENT REFUSE TO BE TURN, DISCUSSED THE BENEFITS AND THE HARM OF NOT TURNING EVERY TWO HOURS ESPECIALLY SINCE SHE'S NOT MOBILE. WANTS HIS COMFORTABLE AND REFUSE TO HAVE HER TURN, STRESSED THE ISSUE CONCERNING THE HARM AND RISK OF NOT TURNING, PATIENT AND CONTINUE TO REFUSE. PILLOW REMOVED FROM PATIENTS BACK, WILL CONTINUE TO MONITOR.
[2018-03-24] MEDS: FAMOTIDINE 20 MG TAB PO SCH (21:30)
[2018-03-24] MEDS: CEFTRIAXONE SOD 1 GM/NS 50 ML 50 ML IV SCH (22:00)
[2018-03-24] MEDS ORDERED: SODIUM CHLORIDE 0.9% 250ML 250 ML ONE (22:57)
--- NOTE | 2018-03-24 23:00 | NUR ---
CONTINUE RESTING ON HER BACK, REFUSED TO TURN TO THE SIDE.
[2018-03-24 23:59] VITALS: BP 119/51
[2018-03-25] VITALS (10 sets, daily range): BP systolic 94–124; BP diastolic 46–78
--- NOTE | 2018-03-25 01:00 | NUR ---
CONTINUE RESTING. CALL LIGHT IN REACH. WILL CONTINUE TO MONITOR.
[2018-03-25 05:07] LABS: BASOPHILS # (AUTO) 0.1 (0.0-0.1); BASOPHILS % 0.4 % (0.0-1.0); EOSINOPHILS # (AUTO) 0.2 (0.0-0.4); EOSINOPHILS % 1.6 % (0.0-6.0); HEMATOCRIT 30.9 % (34.2-44.1); HEMOGLOBIN 10.5 g/dL (12.0-16.0); LYMPHOCYTES # (AUTO) 1.9 (1.0-3.2); LYMPHOCYTES % 16.1 % (18.0-39.1); MEAN CORPUSCULAR HEMOGLOBIN 31.9 pg (28-32); MEAN CORPUSCULAR VOLUME 93.9 fL (81-99); MONOCYTES # (AUTO) 2.1 (0.2-0.8); MONOCYTES % 17.6 % (4.4-11.3); NEUTROPHILS # (AUTO) 7.5 (2.1-6.9); PLATELET COUNT 111 x10e3/uL (140-360); RED BLOOD COUNT 3.29 x10e6/uL (3.6-5.1); RED CELL DISTRIBUTION WIDTH 16.9 % (11.7-14.4)
[2018-03-25 05:30] LABS: ALBUMIN 1.9 g/dL (3.5-5.0); ALBUMIN/GLOBULIN RATIO 0.6 (0.8-2.0); ANION GAP 14.6 mmol/L (8-16); CALCIUM 7.9 mg/dL (8.4-10.2); CREATININE, SERUM 1.98 mg/dL (0.57-1.11); POTASSIUM 4.6 mmol/L (3.5-5.1)
[2018-03-25 05:56] LABS: INR 1.93; PROTHROMBIN TIME 23.6 seconds (11.9-14.5)
[2018-03-25 06:37] LABS: EOSINOPHILS % (MANUAL) 3 % (0-7); LYMPHOCYTES % (MANUAL) 11 % (19-48); MONOCYTES % (MANUAL) 9 % (3.4-9.0); NEUTROPHILS % (MANUAL) 77 % (40-74)
[2018-03-25 06:38] LABS: PLATELET ESTIMATE MODERATELY DECREASED; PLATELET MORPHOLOGY COMMENT NORMAL; RBC MORPHOLOGY COMMENT NORMAL
[2018-03-25] MEDS: BUDESONIDE/FORMOTEROL 160/4.5MCG INHALER INH SCH ×2 (07:00→19:05)
--- NOTE | 2018-03-25 07:30 | NUR ---
--LATE ENTRY--REPORT GIVEN TO AM NURSE, ROUNDS DONE, REMAIN AT THE BEDSIDE. CALL LIGHT REMAIN IN REACH.
[2018-03-25] MEDS: LACTULOSE SYRUP 20 GM/30 ML UDC PO SCH ×3 (09:00→16:41)
[2018-03-25] MEDS: LACTOBACILLUS ACIDOPHILUS CAPSULE PO SCH ×2 (09:21→16:41)
--- NOTE | 2018-03-25 10:01 | NUR ---
GASTON SLADE CALLED REGARDING MD ORDERS TO TRANSFER TO [facility]. PER MD ORDER PATIENT TO TRANSFER DUE TO HEPATORENAL SYNDROME. RN NOTIFIED THAT THERE NEEDS TO BE A REASON NOT JUST A DIAGNOSIS. RN STATES MD SAYS THAT HEPATORENAL SYNDROME IS THE REASON FOR TRANSFER. NO PROCEDURE IS PENDING. RN CREATES ORDER WITH LOC REQUESTED, DX, TRANSFER HOSPITAL AND STATES THE ACCEPTING MD WILL [facility]. CM INITIATES TRANSFER BY CALLING [facility] @ [phone]. 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
[2018-03-25] MEDS: FUROSEMIDE INJ 100 MG in SODIUM CHLORIDE 0.9% 100 ML 90 ML IV SCH ×2 (13:15→20:37)
--- NOTE | 2018-03-25 15:30 | NUR ---
R IJ CENTRAL LINE PLACED, PATIENT TOLERATED WELL AND AT BEDSIDE, WILL CONTINUE TO MONITOR
--- NOTE | 2018-03-25 16:09 | Diagnostic Imaging Report ---
EXAM: CHEST XRAY LINE PLACEMENT INDICATION: Line placement. COMPARISON: Chest radiograph 03/24/2018. FINDINGS: LINES/TUBES: Interval placement of a right IJ central line with catheter tip terminating at the expected location of the lower SVC. LUNGS: Lungs are moderately inflated. There are mild perihilar and interstitial opacities. No evidence of lobar consolidation. PLEURA: No effusions or pneumothorax. HEART AND MEDIASTINUM: Mild cardiomegaly. Surgical changes of coronary artery bypass. BONES AND SOFT TISSUES: Lower cervical spine fixation hardware. Median sternotomy wires. No acute bony findings. IMPRESSION: Interval placement of a right IJ central line with catheter tip terminating at satisfactory position in the expected location of the lower SVC. No evidence of pneumothorax. Mild cardiomegaly with mild pulmonary interstitial edema. Signed by: Dr. Ashlyn Weber MD on 03/25/2018 4:06 PM
--- NOTE | 2018-03-25 16:12 | Diagnostic Imaging Report ---
Procedure: Right internal jugular central venous catheter placement with ultrasound guidance chief console operator: Dr. Ashlyn Weber Pre-operative diagnosis: Requiring central venous access Post-operative diagnosis: Status post central venous access Conscious Sedation: None The patient's heart rate and pulse oximetry were continuously monitored by the nurse. Additional Medications: Lidocaine 1% for local anesthesia Fluoroscopy time: 0 Dose-area Product: 0 mGycm2. Frontal Air Kerma: 0 Contrast used: 0 Estimated blood loss: Minimal Specimens: None Implants: 7 Stateless 16 cm triple-lumen central venous catheter DISCUSSION: Informed consent was obtained and documented in the medical record. The patient was placed in the supine position. Preliminary sonographic evaluation of the right neck confirmed a patent and compressible right internal jugular vein. The neck was then prepped and draped in a standard sterile fashion. Subsequently, 1% lidocaine was infiltrated into the skin and subcutaneous tissues for local anesthesia. Then under continuous sonographic guidance, a micropuncture needle was advanced into the right internal jugular vein. A permanent sonographic image was stored in the medical record. An .018'' wire was placed and upsized to an .035'' Amplatz wire using micropuncture sheath. The .035'' wire was advanced centrally with continuous cardiac rhythm monitoring. The micropuncture sheath was removed. The tract was dilated. Then, a 7 Stateless, 16 cm triple-lumen non-tunneled central venous catheter was advanced over the wire. The wire was then removed. Each lumen was tested and showed adequate bidirectional flow. The catheter was secured to the skin with Monocryl, flushed with sterile saline, and covered by a sterile dressing. The patient tolerated the procedure well without immediate complication. FINDINGS: Patent right internal jugular vein. IMPRESSION: Placement of a 7 Stateless x 16 cm triple-lumen central venous catheter by a right internal jugular approach under sonographic guidance. A postprocedure chest radiograph will be obtained to confirm line positioning prior to use. Signed by: Dr. Ashlyn Weber MD on 03/25/2018 4:08 PM
--- NOTE | 2018-03-25 16:12 | Diagnostic Imaging Report ---
Procedure: Right internal jugular central venous catheter placement with ultrasound guidance pairing machine operator: Dr. Ashlyn Weber Pre-operative diagnosis: Requiring central venous access Post-operative diagnosis: Status post central venous access Conscious Sedation: None The patient's heart rate and pulse oximetry were continuously monitored by the nurse. Additional Medications: Lidocaine 1% for local anesthesia Fluoroscopy time: 0 Dose-area Product: 0 mGycm2. Frontal Air Kerma: 0 Contrast used: 0 Estimated blood loss: Minimal Specimens: None Implants: 7 Citizen [place] 16 cm triple-lumen central venous catheter DISCUSSION: Informed consent was obtained and documented in the medical record. The patient was placed in the supine position. Preliminary sonographic evaluation of the right neck confirmed a patent and compressible right internal jugular vein. The neck was then prepped and draped in a standard sterile fashion. Subsequently, 1% lidocaine was infiltrated into the skin and subcutaneous tissues for local anesthesia. Then under continuous sonographic guidance, a micropuncture needle was advanced into the right internal jugular vein. A permanent sonographic image was stored in the medical record. An .018'' wire was placed and upsized to an .035'' Amplatz wire using micropuncture sheath. The .035'' wire was advanced centrally with continuous cardiac rhythm monitoring. The micropuncture sheath was removed. The tract was dilated. Then, a 7 Citizen [place], 16 cm triple-lumen non-tunneled central venous catheter was advanced over the wire. The wire was then removed. Each lumen was tested and showed adequate bidirectional flow. The catheter was secured to the skin with Monocryl, flushed with sterile saline, and covered by a sterile dressing. The patient tolerated the procedure well without immediate complication. FINDINGS: Patent right internal jugular vein. IMPRESSION: Placement of a 7 Citizen [place] x 16 cm triple-lumen central venous catheter by a right internal jugular approach under sonographic guidance. A postprocedure chest radiograph will be obtained to confirm line positioning prior to use. Signed by: Dr. Ashlyn Weber MD on 03/25/2018 4:08 PM
[2018-03-25] MEDS ORDERED: BENZONATATE 100 MG CAP PO PRN (18:00)
--- NOTE | 2018-03-25 19:00 | NUR ---
Report received from AM RN Felisha. Patient received alert/oriented x2,pleasant and little confused resting on her bed. Denied turn her position.No respiratory distress noted. Respiration even and unlabored. Patient's at the bedside. Bed in lower position,locked.Call huerta within reach. Will continue to monitor.
[2018-03-25 19:20] LABS: CLARITY,URINE SL CLOUDY (CLEAR); COLOR,URINE YELLOW (YELLOW)
[2018-03-25 19:21] LABS: BILIRUBIN,URINE NEGATIVE (NEGATIVE); KETONES,URINE NEGATIVE (NEGATIVE); LEUKOCYTE ESTERASE ,URINE 1+ (NEGATIVE); NITRITE,URINE NEGATIVE (NEGATIVE); PROTEIN,URINE DIPSTICK NEGATIVE (NEGATIVE); URINE UROBILINOGEN 0.2 mg/dL (0.2 - 1)
[2018-03-25 19:40] LABS: EPITHELIAL CELLS,URINE FEW /LPF
[2018-03-25] MEDS ORDERED: SODIUM CHLORIDE 0.9% 250ML 250 ML ONE (20:20)
[2018-03-25] MEDS: CEFTRIAXONE SOD 1 GM/NS 50 ML 50 ML IV SCH (20:37)
[2018-03-25] MEDS: FAMOTIDINE 20 MG TAB PO SCH (20:37)
[2018-03-25] MEDS: TRAMADOL HCL 50 MG TAB PO PRN (21:03)
--- NOTE | 2018-03-25 22:38 | NUR ---
Patient continued resting on her back,refused to turn on her side. Will continue to monitor.
[2018-03-25] MEDS: ONDANSETRON HCL INJ 2 MG/ML VIAL IV PRN (23:06)
[2018-03-25] MEDS: MORPHINE SULFATE INJ 4 MG/ML INJ IV PRN (23:06)
[2018-03-26] MEDS: FUROSEMIDE INJ 100 MG in SODIUM CHLORIDE 0.9% 100 ML 90 ML IV SCH ×3 (01:10→11:15)
[2018-03-26] MEDS: PROMETHAZINE 12.5MG/ NACL 0.9% 12.5 MG/50 ML BAG IV PRN (02:45)
[2018-03-26 02:55] VITALS: BP 97/44
[2018-03-26] MEDS: MORPHINE SULFATE INJ 4 MG/ML INJ IV PRN (02:56)
[2018-03-26 04:54] VITALS: BP 107/48
[2018-03-26 05:02] LABS: BASOPHILS % 0.4 % (0.0-1.0); EOSINOPHILS # (AUTO) 0.1 (0.0-0.4); EOSINOPHILS % 0.8 % (0.0-6.0); HEMATOCRIT 30.4 % (34.2-44.1); HEMOGLOBIN 10.2 g/dL (12.0-16.0); LYMPHOCYTES # (AUTO) 1.3 (1.0-3.2); LYMPHOCYTES % 12.8 % (18.0-39.1); MEAN CORPUSCULAR HEMOGLOBIN 31.8 pg (28-32); MEAN CORPUSCULAR HGB CONC 33.6 g/dL (31-35); MEAN CORPUSCULAR VOLUME 94.7 fL (81-99); MONOCYTES # (AUTO) 1.6 (0.2-0.8); MONOCYTES % 16.3 % (4.4-11.3); NEUTROPHILS # (AUTO) 6.9 (2.1-6.9); NEUTROPHILS % 69.5 % (38.7-80.0); PLATELET COUNT 91 x10e3/uL (140-360); RED BLOOD COUNT 3.21 x10e6/uL (3.6-5.1); RED CELL DISTRIBUTION WIDTH 16.9 % (11.7-14.4)
[2018-03-26 05:13] LABS: INR 2.01; PROTHROMBIN TIME 24.3 seconds (11.9-14.5)
[2018-03-26 05:29] LABS: ALBUMIN 1.8 g/dL (3.5-5.0); ANION GAP 14.4 mmol/L (8-16); CALCIUM 7.7 mg/dL (8.4-10.2); CREATININE, SERUM 2.1 mg/dL (0.57-1.11); POTASSIUM 4.4 mmol/L (3.5-5.1)
--- NOTE | 2018-03-26 06:08 | NUR ---
Patient had running A-fib heart heart below 125 since 424. EKG shows a-fib with RVR, heart rate 111. Called to notified about Patient rhythm and condition. said keep continue to monitor at this time.
[2018-03-26 06:09] LABS: BAND NEUTROPHILS % (MANUAL) 2 %; LYMPHOCYTES % (MANUAL) 13 % (19-48); MONOCYTES % (MANUAL) 9 % (3.4-9.0); NEUTROPHILS % (MANUAL) 76 % (40-74)
[2018-03-26 06:10] LABS: ANISOCYTOSIS S; PLATELET ESTIMATE SLIGHTLY DECREASED; PLATELET MORPHOLOGY COMMENT NORMAL; POIKILOCYTOSIS S; RBC MORPHOLOGY COMMENT NORMAL
[2018-03-26] MEDS: BUDESONIDE/FORMOTEROL 160/4.5MCG INHALER INH SCH (07:00)
--- NOTE | 2018-03-26 07:12 | NUR ---
Report given to upcoming RN Nuris,walking round done.
[2018-03-26 08:39] VITALS: BP 92/58
[2018-03-26 08:40] VITALS: BP 92/58
[2018-03-26 08:49] VITALS: BP 101/56
--- NOTE | 2018-03-26 08:53 | NUR ---
Called Dr. Alexis De La Rosa made him aware of patient's sudden changes in heart rate 120's down to 109 with a blood pressure of 101/56, patient continuing in atrial fibrillation. Received orders to give Lopressor 2.5mg IVP, x1 dose, and decrease Morphine to 1mg IVP.
[2018-03-26] MEDS: LACTOBACILLUS ACIDOPHILUS CAPSULE PO SCH (09:00)
[2018-03-26] MEDS: LACTULOSE SYRUP 20 GM/30 ML UDC PO SCH (09:00)
[2018-03-26] MEDS ORDERED: METOPROLOL TARTRATE INJ 1 MG/ML VIAL IV ONE (09:15)
[2018-03-26] MEDS ORDERED: MORPHINE SULFATE 2 MG/ML SYR IV PRN (09:15)
[2018-03-26] MEDS ORDERED: MORPHINE SULFATE INJ 4 MG/ML INJ IV PRN (09:30)
--- NOTE | 2018-03-26 12:09 | NUR ---
MOT RECEIVED FOR PATIENT TO BE TRANSFERRED TO ACUTE [facility]ARE [facility]: [facility] Address: [address] [place] [address], [place] [address] CALL REPORT TO: [phone] SPEAK WITH [facility] ROOM [id number] LOCATED IN [place] [address] ACCEPTING PHYSICIAN: DR. Marito GRAY, RN NOTIFIED. MOT COMPLETED AND GIVEN TO RN. PATIENT REQUESTS TO RIDE IN AMBULANCE BUT NOTIFIED THAT IT IS UP TO THE AMBULANCE COMPANY. VERBALLY UNDERSTOOD.
--- NOTE | 2018-03-26 12:50 | NUR ---
applied STEPHEN Roberts orders
[2018-03-26] MEDS ORDERED: ALBUMIN 5% 0.05 GM/ML BTL IV ONE ×2 (14:00→14:15)
--- NOTE | 2018-03-26 14:15 | NUR ---
Called Dr. De La Rosa asked him about home medications received orders to stop all home medications, to continue only with inpatient medications. Send transfer MAR
--- NOTE | 2018-03-26 14:25 | NUR ---
Called Dr. Marta Santizo made him aware of patient's blood pressure, trending down 79/67 hr 120, 78/57 hr 120, 84/56 hr 110, received orders to stop Lasix drip, and to give Albumen 5% in 500mls and infuse over 1 hour.
--- NOTE | 2018-03-26 14:30 | NUR ---
PATIENT TRANSFERRED TO [facility]. LEFT UNIT IN [facility]IA AMBULANCE ACCOMPANIED BY HER .
== END 2018-03-26 14:23 | disposition short-term general hospital (02) | DRG 441 ==
LOC: ER 20:03 → ERHOLD 23:41 → IMCU 03-22 01:10
PROVIDERS: ADMIT Internal Medicine; ATTEND Internal Medicine
PROC: 02HV33Z Insertion of Infusion Device into Superior Vena Cava, Percutaneous Approach (ICD-10-PCS; principal; 2018-03-25)
DX: K75.81 Nonalcoholic steatohepatitis (NASH) (principal); K72.00 Acute and subacute hepatic failure without coma; N39.0 Urinary tract infection, site not specified; K76.6 Portal hypertension; E87.1 Hypo-osmolality and hyponatremia; R18.8 Other ascites; Z68.42 Body mass index [BMI] 45.0-49.9, adult; N17.9 Acute kidney failure, unspecified; N18.3 Chronic kidney disease, stage 3 (moderate); Z95.1 Presence of aortocoronary bypass graft; Z82.49 Family history of ischemic heart disease and other diseases of the circulatory system; I25.10 Atherosclerotic heart disease of native coronary artery without angina pectoris; R41.0 Disorientation, unspecified; E66.9 Obesity, unspecified; B96.20 Unspecified Escherichia coli [E. coli] as the cause of diseases classified elsewhere; R53.81 Other malaise; R19.7 Diarrhea, unspecified; G62.9 Polyneuropathy, unspecified
CPT/HCPCS: 36415; 36556; 51700; 71045; 71046; 74176; 74470; 76770; 76937; 80048; 80053; 80076; 81001; 82105; 82140; 82248; 82570; 83605; 83690; 83735; 83880; 84156; 84300; 85025; 85610; 85730; 87086; 87186; 87493; 93005; 96361; 97139; 99285; C1751; C1769; J0696; J1940; J2270; J2405; J2550; J7030; J7050; J7120